=== PATIENT | female | born 1940 | race Caucasian/White ===

== ENCOUNTER 2017-07-05 19:46 | Emergency (ER) | payer MEDICARE, MEDICAID ==
[~2017-07-05] VITALS: Ht 160 cm; Wt 68.0 kg
[~2017-07-05 19:46] MED LIST: CARB1TAB23 PO; GABA-534 PO; [UNRECOGNIZED DRUG - CODE] PO
[2017-07-05] MEDS ORDERED: vancomycin/NS 1 GM ADD-VANTAGE 250 ML IV ONE (20:15)
[2017-07-05 20:40] LABS: BASOPHILS % (AUTO) 0.4 % (0-1); EOSINOPHILS # (AUTO) 0.1 X10'3 (0-0.9); EOSINOPHILS % (AUTO) 1.4 % (0-6); HEMATOCRIT 32.5 % (35.0-45.0); LYMPHOCYTES # (AUTO) 1.3 X10'3 (1.1-4.8); LYMPHOCYTES % (AUTO) 16.5 % (21-51); MEAN CORPUSCULAR HGB CONC 33.9 % (33.0-36.5); MEAN CORPUSCULAR VOLUME 88.5 FL (78-98); MEAN PLATELET VOLUME 8.7 FL (7.4-10.4); MONOCYTES # (AUTO) 0.6 X10'3 (0-0.9); MONOCYTES % (AUTO) 7.4 % (2-12); NEUTROPHILS % (AUTO) 74.3 % (42-75); PLATELET COUNT 284 X10'3 (140-440); RED BLOOD COUNT 3.68 X10'6 (4.20-5.60); WHITE BLOOD COUNT 8.1 X10'3 (4.5-11.0)
[2017-07-05 20:59] LABS: ALANINE AMINOTRANSFERASE 7 U/L (12-78); ALBUMIN 3.3 G/DL (3.4-5.0); ALBUMIN/GLOBULIN RATIO 0.7 (1.1-1.5); ALKALINE PHOSPHATASE 132 IU/L (46-116); ANION GAP 4 (8-16); ASPARTATE AMINO TRANSFERASE 21 U/L (10-37); BILIRUBIN,TOTAL 1.3 MG/DL (0.1-1.0); BLOOD UREA NITROGEN 24 MG/DL (7-18); BUN/CREATININE RATIO 17.1 (6.6-38.0); CALCIUM 9.1 MG/DL (8.5-10.1); CHLORIDE 105 MMOL/L (99-107); GLUCOSE 100 MG/DL (70-104); MAGNESIUM 1.9 MG/DL (1.5-2.4); POTASSIUM 3.9 MMOL/L (3.5-5.1); SODIUM 138 MMOL/L (135-145); TOTAL CARBON DIOXIDE 28.7 MMOL/L (24-32); TOTAL PROTEIN 8.1 G/DL (6.4-8.2); eGFR 36 ML/MIN
[2017-07-05] MEDS ORDERED: SULF1TAB49 PO (21:38)
[2017-07-05] MEDS ORDERED: CEPH250T PO (21:38)
[2017-07-05] MEDS ORDERED: cyclobenzaprine 10mg tablet PO ONE (21:50)
[2017-07-05 22:28] VITALS: BP 138/96
[2017-07-07] MEDS ORDERED: CLIN150C2 PO (23:39)
== END 2017-07-05 22:29 | disposition left against medical advice (07) ==
LOC: ER 19:47
DX: L03.116 Cellulitis of left lower limb (principal); L03.115 Cellulitis of right lower limb; I50.9 Heart failure, unspecified; N17.9 Acute kidney failure, unspecified
CPT/HCPCS: 36415; 80053; 83605; 83735; 84145; 85025; 87040; 96365; 99284; J3370

== ENCOUNTER 2017-09-03 19:32 | Inpatient (IN) | payer MEDICARE, MEDICAID ==
[~2017-09-03] VITALS: Ht 160 cm; Wt 81.3 kg
[2017-09-03 01:20] VITALS: BP 126/65
[~2017-09-03 19:32] MED LIST changes: +CEPH250T PO
[2017-09-03 20:23] LABS: BASOPHILS % (AUTO) 0.3 % (0-1); EOSINOPHILS % (AUTO) 0.4 % (0-6); HEMATOCRIT 34.7 % (35.0-45.0); HEMOGLOBIN 11.4 g/dl (12.0-16.0); LYMPHOCYTES # (AUTO) 0.9 X10'3 (1.1-4.8); LYMPHOCYTES % (AUTO) 10.8 % (21-51); MEAN CORPUSCULAR HEMOGLOBIN 30.1 PG (27.0-31.0); MEAN CORPUSCULAR HGB CONC 32.9 % (33.0-36.5); MEAN CORPUSCULAR VOLUME 91.6 FL (78-98); MEAN PLATELET VOLUME 8.2 FL (7.4-10.4); MONOCYTES # (AUTO) 0.5 X10'3 (0-0.9); MONOCYTES % (AUTO) 5.2 % (2-12); NEUTROPHILS # (AUTO) 7.2 X10'3 (1.8-7.7); NEUTROPHILS % (AUTO) 83.3 % (42-75); PLATELET COUNT 284 X10'3 (140-440); RED BLOOD COUNT 3.79 X10'6 (4.20-5.60); RED CELL DISTRIBUTION WIDTH 16.3 % (11.5-14.5); WHITE BLOOD COUNT 8.7 X10'3 (4.5-11.0)
[2017-09-03 20:37] LABS: ALANINE AMINOTRANSFERASE 9 U/L (12-78); ALBUMIN 2.9 G/DL (3.4-5.0); ALBUMIN/GLOBULIN RATIO 0.5 (1.1-1.5); ALKALINE PHOSPHATASE 181 IU/L (46-116); ANION GAP 13 (8-16); ASPARTATE AMINO TRANSFERASE 16 U/L (10-37); BILIRUBIN,TOTAL 0.8 MG/DL (0.1-1.0); BLOOD UREA NITROGEN 27 MG/DL (7-18); BUN/CREATININE RATIO 17.5 (6.6-38.0); CALCIUM 9.2 MG/DL (8.5-10.1); CHLORIDE 104 MMOL/L (99-107); CREATININE 1.54 MG/DL (0.40-0.90); GLUCOSE 84 MG/DL (70-104); POTASSIUM 4.6 MMOL/L (3.5-5.1); SODIUM 141 MMOL/L (135-145); TOTAL CARBON DIOXIDE 24.1 MMOL/L (24-32); TOTAL PROTEIN 8.2 G/DL (6.4-8.2); eGFR 33 ML/MIN
[2017-09-03 21:17] LABS: TROPONIN I < 0.04 NG/ML (0.0-0.05)
[2017-09-03] MEDS ORDERED: potassium Cl 40MEQ/NS 500ml 500 ML IV PRN ×2 (21:40)
[2017-09-03] MEDS ORDERED: acetaminophen 325mg tablet PO PRN (21:40)
[2017-09-03] MEDS ORDERED: potassium Cl 20 mEq SR tablet PO PRN ×2 (21:40)
[2017-09-03] MEDS ORDERED: ondansetron/PF 4mg/2ml inj IV PRN (21:40)
[2017-09-03 21:59] LABS: CLARITY,URINE CLOUDY (Clear); GLUCOSE, URINE NEGATIVE (Neg); KETONES,URINE TRACE mg/dl (Neg); LEUKOCYTE ESTERASE ,URINE MODERATE (Neg); NITRITES, URINE POSITIVE (Neg); OCCULT BLOOD,URINE LARGE (Neg); PROTEIN,URINE 100 mg/dl (Neg)
[2017-09-03 22:07] LABS: UA COLLECTION TYPE STRAIGHT CATH
[2017-09-03 22:08] LABS: COLOR,URINE AMBER (Yellow)
[2017-09-03 22:08] LABS: INR 1.1 INR; PARTIAL THROMBOPLASTIN TIME 26 SECONDS (22-32); PROTHROMBIN TIME 10.9 SECONDS (9.0-12.0)
[2017-09-03 22:10] LABS: BACTERIA,URINE 3+ /HPF (Neg); WBC,URINE 50-100 /HPF (0-4)
[2017-09-03 22:11] LABS: SQUAMOUS EPITHELIAL CELL,UR MANY /LPF (FEW)
[2017-09-03 22:12] LABS: MUCUS STRANDS FEW /LPF (Neg)
[2017-09-03 22:13] LABS: AMORPHOUS URATES 1+; HYALINE CASTS 0-3 /LPF (NEGATIVE)
[2017-09-03] MEDS: furosemide 40mg/4ml inj IV SCH (23:05)
[2017-09-04 01:20] VITALS: BP 126/65
[2017-09-04] MEDS ORDERED: piperacillin/tazo 3.375gm/50ml 50 ML IV ONE (02:40)
[2017-09-04] MEDS: gabapentin 400mg capsule PO SCH ×3 (02:44→17:07)
[2017-09-04] MEDS: piperacillin/tazo 3.375gm/50ml 50 ML IV SCH ×4 (02:45→22:34)
[2017-09-04 05:08] LABS: BASOPHILS % (AUTO) 0.4 % (0-1); EOSINOPHILS # (AUTO) 0.1 X10'3 (0-0.9); EOSINOPHILS % (AUTO) 1.2 % (0-6); HEMATOCRIT 30.2 % (35.0-45.0); HEMOGLOBIN 10.1 g/dl (12.0-16.0); LYMPHOCYTES # (AUTO) 0.8 X10'3 (1.1-4.8); LYMPHOCYTES % (AUTO) 7.5 % (21-51); MEAN CORPUSCULAR HEMOGLOBIN 30.1 PG (27.0-31.0); MEAN CORPUSCULAR HGB CONC 33.4 % (33.0-36.5); MEAN CORPUSCULAR VOLUME 90.2 FL (78-98); MEAN PLATELET VOLUME 8.6 FL (7.4-10.4); MONOCYTES # (AUTO) 0.6 X10'3 (0-0.9); MONOCYTES % (AUTO) 6.2 % (2-12); NEUTROPHILS # (AUTO) 8.7 X10'3 (1.8-7.7); NEUTROPHILS % (AUTO) 84.7 % (42-75); PLATELET COUNT 271 X10'3 (140-440); RED BLOOD COUNT 3.35 X10'6 (4.20-5.60); RED CELL DISTRIBUTION WIDTH 15.9 % (11.5-14.5); WHITE BLOOD COUNT 10.3 X10'3 (4.5-11.0)
[2017-09-04 05:30] LABS: ALBUMIN 2.4 G/DL (3.4-5.0); ANION GAP 10 (8-16); BLOOD UREA NITROGEN 28 MG/DL (7-18); BUN/CREATININE RATIO 18.9 (6.6-38.0); CALCIUM 8.5 MG/DL (8.5-10.1); CHLORIDE 105 MMOL/L (99-107); CREATININE 1.48 MG/DL (0.40-0.90); GLUCOSE 123 MG/DL (70-104); POTASSIUM 3.9 MMOL/L (3.5-5.1); SODIUM 140 MMOL/L (135-145); TOTAL CARBON DIOXIDE 24.8 MMOL/L (24-32); eGFR 34 ML/MIN
[2017-09-04 08:00] VITALS: BP 117/60
[2017-09-04] MEDS: K and/or MAG REPLACEMENT MC SCH (08:00)
[2017-09-04] MEDS: furosemide 40mg/4ml inj IV SCH (08:37)
[2017-09-04 11:00] VITALS: BP 116/62
[2017-09-04] MEDS: carbidoba-levodopa 25-100mg tablet PO SCH ×4 (11:23→22:34)
[2017-09-04] MEDS: HYDROcodone/acetaminophen 5mg/325mg tablet PO PRN ×2 (11:23→17:08)
[2017-09-04 14:54] VITALS: BP 89/53
[2017-09-04 15:59] VITALS: BP 102/44
[2017-09-04] MEDS: silver sulfadiazine cream 400gm jar TP SCH (17:15)
[2017-09-04 20:00] VITALS: BP 120/51
[2017-09-04] MEDS ORDERED: vancomycin/NS 1 GM ADD-VANTAGE 250 ML IV SCH (21:00)
[2017-09-04] MEDS: carbidopa/levodopa 50/200mg CR tablet PO SCH (21:00)
[2017-09-04] MEDS: heparin, porcine 5000 units/ml vial SQ SCH (22:35)
[2017-09-05] VITALS: BP 126/67
[2017-09-05] MEDS: gabapentin 400mg capsule PO SCH ×3 (00:09→16:50)
[2017-09-05] MEDS: vancomycin/NS 1 GM ADD-VANTAGE 250 ML IV SCH ×2 (00:10→22:55)
[2017-09-05] MEDS: piperacillin/tazo 3.375gm/50ml 50 ML IV SCH (03:56)
[2017-09-05 05:15] LABS: BASOPHILS % (AUTO) 0.3 % (0-1); EOSINOPHILS # (AUTO) 0.2 X10'3 (0-0.9); EOSINOPHILS % (AUTO) 2.2 % (0-6); HEMATOCRIT 31.3 % (35.0-45.0); HEMOGLOBIN 10.3 g/dl (12.0-16.0); LYMPHOCYTES # (AUTO) 1.7 X10'3 (1.1-4.8); LYMPHOCYTES % (AUTO) 15.4 % (21-51); MEAN CORPUSCULAR HEMOGLOBIN 30.3 PG (27.0-31.0); MEAN CORPUSCULAR VOLUME 91.8 FL (78-98); MEAN PLATELET VOLUME 8.9 FL (7.4-10.4); MONOCYTES # (AUTO) 0.9 X10'3 (0-0.9); MONOCYTES % (AUTO) 7.8 % (2-12); NEUTROPHILS # (AUTO) 8.3 X10'3 (1.8-7.7); NEUTROPHILS % (AUTO) 74.3 % (42-75); PLATELET COUNT 226 X10'3 (140-440); RED BLOOD COUNT 3.41 X10'6 (4.20-5.60); RED CELL DISTRIBUTION WIDTH 16.5 % (11.5-14.5); WHITE BLOOD COUNT 11.2 X10'3 (4.5-11.0)
[2017-09-05 05:50] LABS: ALBUMIN 1.9 G/DL (3.4-5.0); ANION GAP 7 (8-16); BLOOD UREA NITROGEN 34 MG/DL (7-18); BUN/CREATININE RATIO 18.1 (6.6-38.0); CALCIUM 8.1 MG/DL (8.5-10.1); CHLORIDE 105 MMOL/L (99-107); CREATININE 1.88 MG/DL (0.40-0.90); GLUCOSE 99 MG/DL (70-104); POTASSIUM 3.5 MMOL/L (3.5-5.1); SODIUM 142 MMOL/L (135-145); TOTAL CARBON DIOXIDE 30.5 MMOL/L (24-32); eGFR 26 ML/MIN
[2017-09-05 07:11] VITALS: BP 126/61
[2017-09-05] MEDS ORDERED: furosemide 40mg/4ml inj IV SCH (08:00)
[2017-09-05] MEDS: K and/or MAG REPLACEMENT MC SCH (08:00)
[2017-09-05] MEDS: heparin, porcine 5000 units/ml vial SQ SCH ×2 (09:01→19:53)
[2017-09-05] MEDS: carbidoba-levodopa 25-100mg tablet PO SCH ×4 (09:01→20:02)
[2017-09-05] MEDS: carbidopa/levodopa 50/200mg CR tablet PO SCH ×3 (09:01→20:03)
[2017-09-05] MEDS: levoFLOXACIN-Levaquin 500mg/D5 100 ML IV SCH (09:02)
[2017-09-05] MEDS: silver sulfadiazine cream 400gm jar TP SCH (09:03)
[2017-09-05 11:00] VITALS: BP 129/67
[2017-09-05] MEDS: carVEDilol 3.125mg tablet PO SCH (19:54)
[2017-09-05 20:00] VITALS: BP 101/67
[2017-09-06] VITALS: BP 105/59
[2017-09-06 05:27] LABS: BASOPHILS % (AUTO) 0 % (0-1); EOSINOPHILS # (AUTO) 0.5 X10'3 (0-0.9); HEMATOCRIT 32.1 % (35.0-45.0); HEMOGLOBIN 10.5 g/dl (12.0-16.0); LYMPHOCYTES # (AUTO) 1.7 X10'3 (1.1-4.8); MEAN CORPUSCULAR HEMOGLOBIN 30.1 PG (27.0-31.0); MEAN CORPUSCULAR HGB CONC 32.6 % (33.0-36.5); MEAN CORPUSCULAR VOLUME 92.3 FL (78-98); MEAN PLATELET VOLUME 9.1 FL (7.4-10.4); MONOCYTES # (AUTO) 1.1 X10'3 (0-0.9); MONOCYTES % (AUTO) 6.4 % (2-12); NEUTROPHILS # (AUTO) 14.1 X10'3 (1.8-7.7); NEUTROPHILS % (AUTO) 80.6 % (42-75); PLATELET COUNT 227 X10'3 (140-440); RED BLOOD COUNT 3.48 X10'6 (4.20-5.60); RED CELL DISTRIBUTION WIDTH 16.2 % (11.5-14.5); WHITE BLOOD COUNT 17.5 X10'3 (4.5-11.0)
[2017-09-06 05:39] LABS: ALBUMIN 1.9 G/DL (3.4-5.0); ANION GAP 5 (8-16); BLOOD UREA NITROGEN 42 MG/DL (7-18); CALCIUM 7.9 MG/DL (8.5-10.1); CHLORIDE 106 MMOL/L (99-107); GLUCOSE 91 MG/DL (70-104); POTASSIUM 3.7 MMOL/L (3.5-5.1); SODIUM 143 MMOL/L (135-145); TOTAL CARBON DIOXIDE 32.4 MMOL/L (24-32); eGFR 24 ML/MIN
[2017-09-06 07:30] VITALS: BP 113/54
[2017-09-06] MEDS: K and/or MAG REPLACEMENT MC SCH (07:43)
[2017-09-06] MEDS: carbidoba-levodopa 25-100mg tablet PO SCH ×4 (10:05→21:14)
[2017-09-06] MEDS: levoFLOXACIN-Levaquin 500mg/D5 100 ML IV SCH (10:05)
[2017-09-06] MEDS: heparin, porcine 5000 units/ml vial SQ SCH ×2 (10:05→20:06)
[2017-09-06] MEDS: carbidopa/levodopa 50/200mg CR tablet PO SCH ×3 (10:05→21:14)
[2017-09-06] MEDS: gabapentin 400mg capsule PO SCH ×4 (10:06→23:51)
[2017-09-06] MEDS: furosemide 20MG tablet PO SCH (10:06)
[2017-09-06] MEDS: carVEDilol 3.125mg tablet PO SCH ×2 (10:06→20:05)
[2017-09-06] MEDS: silver sulfadiazine cream 400gm jar TP SCH (10:07)
[2017-09-06 12:00] VITALS: BP 108/61
[2017-09-06] MEDS ORDERED: normal saline 500ml IV soln 1,000 ML IV ONE (14:00)
[2017-09-06 18:00] VITALS: BP 132/74
[2017-09-06] MEDS: lactobacillus rhamnosus 10,000 MMU CELLS/CAPSULE PO SCH (20:05)
[2017-09-06] MEDS: vancomycin/NS 1 GM ADD-VANTAGE 250 ML IV SCH (22:02)
[2017-09-06] MEDS ORDERED: VANCOMYCIN LEVEL IV ONE (22:30)
[2017-09-07] VITALS: BP 106/39
[2017-09-07 05:59] LABS: BASOPHILS % (AUTO) 0.1 % (0-1); EOSINOPHILS # (AUTO) 0.6 X10'3 (0-0.9); EOSINOPHILS % (AUTO) 3.1 % (0-6); HEMATOCRIT 28.4 % (35.0-45.0); HEMOGLOBIN 9.4 g/dl (12.0-16.0); LYMPHOCYTES # (AUTO) 1.8 X10'3 (1.1-4.8); LYMPHOCYTES % (AUTO) 9.8 % (21-51); MEAN CORPUSCULAR HEMOGLOBIN 30.2 PG (27.0-31.0); MEAN CORPUSCULAR VOLUME 91.6 FL (78-98); MEAN PLATELET VOLUME 9.5 FL (7.4-10.4); MONOCYTES # (AUTO) 1.3 X10'3 (0-0.9); PLATELET COUNT 220 X10'3 (140-440); RED CELL DISTRIBUTION WIDTH 16.5 % (11.5-14.5); WHITE BLOOD COUNT 18.7 X10'3 (4.5-11.0)
[2017-09-07 06:23] LABS: ALBUMIN 1.6 G/DL (3.4-5.0); ANION GAP 8 (8-16); BLOOD UREA NITROGEN 47 MG/DL (7-18); BUN/CREATININE RATIO 21.2 (6.6-38.0); CHLORIDE 106 MMOL/L (99-107); CREATININE 2.22 MG/DL (0.40-0.90); GLUCOSE 84 MG/DL (70-104); POTASSIUM 4.2 MMOL/L (3.5-5.1); SODIUM 143 MMOL/L (135-145); TOTAL CARBON DIOXIDE 29.5 MMOL/L (24-32); eGFR 21 ML/MIN
[2017-09-07 07:01] VITALS: BP 118/54
[2017-09-07] MEDS: K and/or MAG REPLACEMENT MC SCH (08:00)
[2017-09-07] MEDS: levoFLOXACIN-Levaquin 500mg/D5 100 ML IV SCH (09:30)
[2017-09-07] MEDS: carbidopa/levodopa 50/200mg CR tablet PO SCH ×3 (09:30→20:24)
[2017-09-07] MEDS: carVEDilol 3.125mg tablet PO SCH ×2 (09:30→20:00)
[2017-09-07] MEDS: gabapentin 400mg capsule PO SCH (09:31)
[2017-09-07] MEDS: carbidoba-levodopa 25-100mg tablet PO SCH ×4 (09:31→20:23)
[2017-09-07] MEDS: lactobacillus rhamnosus 10,000 MMU CELLS/CAPSULE PO SCH ×2 (09:31→20:23)
[2017-09-07] MEDS: furosemide 20MG tablet PO SCH (09:31)
[2017-09-07] MEDS: heparin, porcine 5000 units/ml vial SQ SCH ×2 (09:32→20:23)
[2017-09-07] MEDS: silver sulfadiazine cream 400gm jar TP SCH (09:33)
[2017-09-07 11:00] VITALS: BP 115/40
[2017-09-07] MEDS ORDERED: gabapentin 300mg capsule PO SCH (12:00)
[2017-09-07 18:00] VITALS: BP 96/50
[2017-09-07] MEDS ORDERED: VANCOMYCIN LEVEL IV ONE (22:30)
[2017-09-07] MEDS: vancomycin/NS 1 GM ADD-VANTAGE 250 ML IV SCH (22:50)
[2017-09-08] VITALS (7 sets, daily range): BP systolic 96–107; BP diastolic 35–52
[2017-09-08 04:59] LABS: BASOPHILS % (AUTO) 0.1 % (0-1); EOSINOPHILS # (AUTO) 0.5 X10'3 (0-0.9); EOSINOPHILS % (AUTO) 2.9 % (0-6); HEMATOCRIT 28.2 % (35.0-45.0); HEMOGLOBIN 9.3 g/dl (12.0-16.0); LYMPHOCYTES # (AUTO) 1.7 X10'3 (1.1-4.8); LYMPHOCYTES % (AUTO) 9.9 % (21-51); MEAN CORPUSCULAR HEMOGLOBIN 30.1 PG (27.0-31.0); MEAN CORPUSCULAR HGB CONC 33.1 % (33.0-36.5); MEAN PLATELET VOLUME 9.5 FL (7.4-10.4); MONOCYTES # (AUTO) 1.1 X10'3 (0-0.9); MONOCYTES % (AUTO) 6.5 % (2-12); NEUTROPHILS # (AUTO) 13.6 X10'3 (1.8-7.7); NEUTROPHILS % (AUTO) 80.6 % (42-75); PLATELET COUNT 250 X10'3 (140-440); WHITE BLOOD COUNT 16.9 X10'3 (4.5-11.0)
[2017-09-08 05:28] LABS: ALBUMIN 1.7 G/DL (3.4-5.0); ANION GAP 7 (8-16); BLOOD UREA NITROGEN 58 MG/DL (7-18); BUN/CREATININE RATIO 20.9 (6.6-38.0); CALCIUM 8.3 MG/DL (8.5-10.1); CHLORIDE 105 MMOL/L (99-107); CREATININE 2.78 MG/DL (0.40-0.90); GLUCOSE 91 MG/DL (70-104); POTASSIUM 4.2 MMOL/L (3.5-5.1); SODIUM 142 MMOL/L (135-145); TOTAL CARBON DIOXIDE 30.1 MMOL/L (24-32); eGFR 16 ML/MIN
[2017-09-08] MEDS: K and/or MAG REPLACEMENT MC SCH (08:00)
[2017-09-08] MEDS: levoFLOXACIN-Levaquin 250mg/D5 100 ML IV SCH (08:13)
[2017-09-08] MEDS: carVEDilol 3.125mg tablet PO SCH ×2 (08:14→19:36)
[2017-09-08] MEDS: gabapentin 300mg capsule PO SCH (08:14)
[2017-09-08] MEDS: carbidoba-levodopa 25-100mg tablet PO SCH ×4 (08:14→22:59)
[2017-09-08] MEDS: lactobacillus rhamnosus 10,000 MMU CELLS/CAPSULE PO SCH ×2 (08:14→19:25)
[2017-09-08] MEDS: carbidopa/levodopa 50/200mg CR tablet PO SCH ×3 (08:14→22:59)
[2017-09-08] MEDS: heparin, porcine 5000 units/ml vial SQ SCH ×2 (08:45→19:29)
[2017-09-08] MEDS ORDERED: albumin (human) 25% 100 ML IV solution IV ONE (16:05)
[2017-09-08 17:35] LABS: CLARITY,URINE TURBID (Clear); COLOR,URINE YELLOW (Yellow); GLUCOSE, URINE NEGATIVE (Neg); KETONES,URINE NEGATIVE (Neg); LEUKOCYTE ESTERASE ,URINE LARGE (Neg); NITRITES, URINE NEGATIVE (Neg); OCCULT BLOOD,URINE LARGE (Neg); PH,URINE 5.5 (4.8-8.0); PROTEIN,URINE 100 mg/dl (Neg); UROBILINOGEN,URINE 0.2 E.U/dL (0.2-1.0)
[2017-09-08 17:38] LABS: UA COLLECTION TYPE NON-SPECIFIED
[2017-09-08 17:42] LABS: BACTERIA,URINE 2+ /HPF (Neg); MUCUS STRANDS NONE SEEN /LPF (Neg); RBC,URINE TNTC /HPF (0-2); SQUAMOUS EPITHELIAL CELL,UR FEW /LPF (FEW); WBC CLUMPS,URINE MANY /HPF (NEGATIVE); WBC,URINE TNTC /HPF (0-4); YEAST MANY /HPF (NEGATIVE)
[2017-09-08 18:04] LABS: TROPONIN I < 0.04 NG/ML (0.0-0.05)
[2017-09-08] MEDS: CefTRIAXone 2gm/D5W 50ml 50 ML IV SCH (22:54)
[2017-09-08] MEDS: silver sulfadiazine cream 400gm jar TP SCH (23:00)
[2017-09-09] VITALS (12 sets, daily range): BP systolic 82–118; BP diastolic 35–57
[2017-09-09] MEDS: VANCOMYCIN LEVEL IV SCH ×2 (03:00→10:28)
[2017-09-09] MEDS ORDERED: vancomycin/NS 1 GM ADD-VANTAGE 250 ML IV PRN (07:00)
[2017-09-09] MEDS: K and/or MAG REPLACEMENT MC SCH (08:00)
[2017-09-09] MEDS ORDERED: albumin (human) 25% 100 ML IV solution IV ONE (08:20)
[2017-09-09] MEDS: levoFLOXACIN-Levaquin 250mg/D5 100 ML IV SCH (08:34)
[2017-09-09] MEDS: heparin, porcine 5000 units/ml vial SQ SCH ×2 (08:35→20:37)
[2017-09-09] MEDS: carbidoba-levodopa 25-100mg tablet PO SCH ×4 (08:35→20:37)
[2017-09-09] MEDS: carbidopa/levodopa 50/200mg CR tablet PO SCH ×4 (08:35→20:37)
[2017-09-09] MEDS: gabapentin 300mg capsule PO SCH (08:35)
[2017-09-09] MEDS: lactobacillus rhamnosus 10,000 MMU CELLS/CAPSULE PO SCH ×2 (08:36→20:38)
[2017-09-09] MEDS: HYDROcodone/acetaminophen 5mg/325mg tablet PO PRN (10:10)
[2017-09-09] MEDS ORDERED: LORazepam 2 mg/ml vial IV ONE (10:30)
[2017-09-09 10:56] LABS: ABG BASE EXCESS -1.4 mmol/L (-2.0-3.0); ABG HCO3 24.5 mmol/L (22.0-26.0); ABG OXYGEN SATURATION 94.8 % (95-98); ABG PCO2 (T) 47.3 mmHg (32.0-45.0); ABG PH (T) 7.333 (7.350-7.450); ABG PO2 (T) 77.2 mmHg (83-108); ALLEN'S TEST Positive; FCOHb 0.3 % (0.5-1.5); FLOW 2 L/min; FMetHb 0.3 % (0.3-1.12); FO2Hb 94.2 % (94-100); TOTAL HEMOGLOBIN 8.9 G/dl (12.0-16.0)
[2017-09-09] MEDS ORDERED: normal saline 1000ml 1,000 ML IVB ONE (12:41)
[2017-09-09] MEDS: normal saline 1000ml 1,000 ML IV SCH ×2 (12:45→17:50)
[2017-09-09 13:02] LABS: VANCOMYCIN,RANDOM 15.5 UG/ML
[2017-09-09 14:20] LABS: BASOPHILS % (AUTO) 0.2 % (0-1); EOSINOPHILS # (AUTO) 0.4 X10'3 (0-0.9); EOSINOPHILS % (AUTO) 4.8 % (0-6); HEMATOCRIT 24.8 % (35.0-45.0); HEMOGLOBIN 8.1 g/dl (12.0-16.0); LYMPHOCYTES # (AUTO) 0.9 X10'3 (1.1-4.8); LYMPHOCYTES % (AUTO) 10.1 % (21-51); MEAN CORPUSCULAR HEMOGLOBIN 29.9 PG (27.0-31.0); MEAN CORPUSCULAR HGB CONC 32.6 % (33.0-36.5); MEAN CORPUSCULAR VOLUME 91.7 FL (78-98); MEAN PLATELET VOLUME 9.8 FL (7.4-10.4); MONOCYTES # (AUTO) 0.5 X10'3 (0-0.9); MONOCYTES % (AUTO) 5.1 % (2-12); NEUTROPHILS # (AUTO) 7.2 X10'3 (1.8-7.7); NEUTROPHILS % (AUTO) 79.8 % (42-75); PLATELET COUNT 245 X10'3 (140-440); RED CELL DISTRIBUTION WIDTH 16.2 % (11.5-14.5)
[2017-09-09 14:32] LABS: PROTHROMBIN TIME 10.6 SECONDS (9.0-12.0)
[2017-09-09 14:40] LABS: ALANINE AMINOTRANSFERASE 10 U/L (12-78); ALBUMIN/GLOBULIN RATIO 0.8 (1.1-1.5); ALKALINE PHOSPHATASE 157 IU/L (46-116); ANION GAP 9 (8-16); ASPARTATE AMINO TRANSFERASE 18 U/L (10-37); BILIRUBIN,TOTAL 0.4 MG/DL (0.1-1.0); BLOOD UREA NITROGEN 55 MG/DL (7-18); CALCIUM 8.6 MG/DL (8.5-10.1); CHLORIDE 106 MMOL/L (99-107); CREATININE 2.29 MG/DL (0.40-0.90); GLUCOSE 108 MG/DL (70-104); PHOSPHORUS 3.7 MG/DL (2.3-4.5); POTASSIUM 4.1 MMOL/L (3.5-5.1); SODIUM 143 MMOL/L (135-145); TOTAL PROTEIN 6.7 G/DL (6.4-8.2); eGFR 21 ML/MIN
[2017-09-09 14:40] LABS: TOTAL PROTEIN,URINE RANDOM 153.1 MG/DL
[2017-09-09] MEDS ORDERED: levoFLOXACIN-Levaquin 250mg/D5 50 ML IV SCH (15:00)
[2017-09-09] MEDS: silver sulfadiazine cream 400gm jar TP SCH (16:11)
[2017-09-09] MEDS: methylPREDNISolone sod succ 125mg/2ml vial IV SCH (20:32)
[2017-09-09] MEDS: CefTRIAXone 2gm/D5W 50ml 50 ML IV SCH (20:32)
[2017-09-10 05:46] LABS: BASOPHILS % (AUTO) 0.1 % (0-1); EOSINOPHILS % (AUTO) 0.1 % (0-6); HEMATOCRIT 27.8 % (35.0-45.0); HEMOGLOBIN 9.1 g/dl (12.0-16.0); LYMPHOCYTES # (AUTO) 0.8 X10'3 (1.1-4.8); LYMPHOCYTES % (AUTO) 9.8 % (21-51); MEAN CORPUSCULAR HEMOGLOBIN 29.9 PG (27.0-31.0); MEAN CORPUSCULAR HGB CONC 32.5 % (33.0-36.5); MEAN CORPUSCULAR VOLUME 91.8 FL (78-98); MEAN PLATELET VOLUME 9.8 FL (7.4-10.4); MONOCYTES % (AUTO) 0.5 % (2-12); NEUTROPHILS # (AUTO) 7.9 X10'3 (1.8-7.7); NEUTROPHILS % (AUTO) 89.5 % (42-75); PLATELET COUNT 285 X10'3 (140-440); RED BLOOD COUNT 3.03 X10'6 (4.20-5.60); RED CELL DISTRIBUTION WIDTH 15.5 % (11.5-14.5); WHITE BLOOD COUNT 8.7 X10'3 (4.5-11.0)
[2017-09-10 05:47] LABS: ALANINE AMINOTRANSFERASE 7 U/L (12-78); ALBUMIN 2.9 G/DL (3.4-5.0); ALBUMIN/GLOBULIN RATIO 0.7 (1.1-1.5); ANION GAP 9 (8-16); ASPARTATE AMINO TRANSFERASE 18 U/L (10-37); BILIRUBIN,TOTAL 0.5 MG/DL (0.1-1.0); BLOOD UREA NITROGEN 54 MG/DL (7-18); BUN/CREATININE RATIO 25.6 (6.6-38.0); CALCIUM 8.8 MG/DL (8.5-10.1); CHLORIDE 108 MMOL/L (99-107); CREATININE 2.11 MG/DL (0.40-0.90); GLUCOSE 151 MG/DL (70-104); MAGNESIUM 2.1 MG/DL (1.5-2.4); PHOSPHORUS 4.5 MG/DL (2.3-4.5); POTASSIUM 4.8 MMOL/L (3.5-5.1); SODIUM 144 MMOL/L (135-145); TOTAL CARBON DIOXIDE 27.5 MMOL/L (24-32); TOTAL PROTEIN 7.1 G/DL (6.4-8.2); eGFR 23 ML/MIN
[2017-09-10 05:48] LABS: ALKALINE PHOSPHATASE 179 IU/L (46-116)
[2017-09-10 07:37] VITALS: BP 139/73
[2017-09-10] MEDS: K and/or MAG REPLACEMENT MC SCH (08:00)
[2017-09-10] MEDS: silver sulfadiazine cream 400gm jar TP SCH (08:00)
[2017-09-10 08:15] LABS: PROTHROMBIN TIME 10.2 SECONDS (9.0-12.0)
[2017-09-10] MEDS: lactobacillus rhamnosus 10,000 MMU CELLS/CAPSULE PO SCH ×2 (08:33→19:50)
[2017-09-10] MEDS: levoFLOXACIN-Levaquin 250mg/D5 100 ML IV SCH (08:34)
[2017-09-10] MEDS: methylPREDNISolone sod succ 125mg/2ml vial IV SCH ×3 (08:34→20:47)
[2017-09-10] MEDS: carbidoba-levodopa 25-100mg tablet PO SCH ×4 (08:35→20:48)
[2017-09-10] MEDS: gabapentin 300mg capsule PO SCH (08:35)
[2017-09-10] MEDS: carbidopa/levodopa 50/200mg CR tablet PO SCH ×3 (08:36→20:48)
[2017-09-10] MEDS: heparin, porcine 5000 units/ml vial SQ SCH ×2 (08:37→19:50)
[2017-09-10 11:30] VITALS: BP 133/83
[2017-09-10] MEDS ORDERED: fluconazole 150mg tablet PO ONE (18:05)
[2017-09-10] MEDS: HYDROcodone/acetaminophen 5mg/325mg tablet PO PRN (18:55)
[2017-09-10] MEDS: fluconazole 100mg tablet PO SCH (19:47)
[2017-09-10 20:00] VITALS: BP 130/66
[2017-09-10] MEDS: CefTRIAXone 2gm/D5W 50ml 50 ML IV SCH (20:48)
[2017-09-10] MEDS: normal saline 1000ml 1,000 ML IV SCH (22:12)
[2017-09-10 23:30] VITALS: BP 119/70
[2017-09-11 06:06] LABS: BASOPHILS % (AUTO) 0.2 % (0-1); EOSINOPHILS % (AUTO) 0 % (0-6); HEMATOCRIT 27.4 % (35.0-45.0); LYMPHOCYTES # (AUTO) 0.8 X10'3 (1.1-4.8); LYMPHOCYTES % (AUTO) 13.9 % (21-51); MEAN CORPUSCULAR HEMOGLOBIN 29.9 PG (27.0-31.0); MEAN CORPUSCULAR VOLUME 90.8 FL (78-98); MEAN PLATELET VOLUME 10.1 FL (7.4-10.4); MONOCYTES # (AUTO) 0.1 X10'3 (0-0.9); MONOCYTES % (AUTO) 1.7 % (2-12); NEUTROPHILS # (AUTO) 4.6 X10'3 (1.8-7.7); NEUTROPHILS % (AUTO) 84.2 % (42-75); PLATELET COUNT 283 X10'3 (140-440); RED BLOOD COUNT 3.02 X10'6 (4.20-5.60); RED CELL DISTRIBUTION WIDTH 16.4 % (11.5-14.5); WHITE BLOOD COUNT 5.5 X10'3 (4.5-11.0)
[2017-09-11 06:11] LABS: PROTHROMBIN TIME 10.8 SECONDS (9.0-12.0)
[2017-09-11 06:29] LABS: ALANINE AMINOTRANSFERASE 8 U/L (12-78); ALBUMIN 2.7 G/DL (3.4-5.0); ALBUMIN/GLOBULIN RATIO 0.6 (1.1-1.5); ALKALINE PHOSPHATASE 164 IU/L (46-116); ANION GAP 10 (8-16); ASPARTATE AMINO TRANSFERASE 14 U/L (10-37); BILIRUBIN,TOTAL 0.5 MG/DL (0.1-1.0); BLOOD UREA NITROGEN 57 MG/DL (7-18); BUN/CREATININE RATIO 30.6 (6.6-38.0); CALCIUM 9.1 MG/DL (8.5-10.1); CHLORIDE 106 MMOL/L (99-107); CREATININE 1.86 MG/DL (0.40-0.90); GLUCOSE 171 MG/DL (70-104); MAGNESIUM 2.2 MG/DL (1.5-2.4); PHOSPHORUS 3.9 MG/DL (2.3-4.5); POTASSIUM 4.4 MMOL/L (3.5-5.1); SODIUM 141 MMOL/L (135-145); TOTAL CARBON DIOXIDE 25.5 MMOL/L (24-32); TOTAL PROTEIN 6.9 G/DL (6.4-8.2); eGFR 26 ML/MIN
[2017-09-11 08:00] VITALS: BP 120/67
[2017-09-11] MEDS: K and/or MAG REPLACEMENT MC SCH (08:00)
[2017-09-11] MEDS: carbidopa/levodopa 50/200mg CR tablet PO SCH ×3 (08:17→20:27)
[2017-09-11] MEDS: carbidoba-levodopa 25-100mg tablet PO SCH ×4 (08:18→20:27)
[2017-09-11] MEDS: lactobacillus rhamnosus 10,000 MMU CELLS/CAPSULE PO SCH ×2 (08:20→20:27)
[2017-09-11] MEDS: gabapentin 300mg capsule PO SCH (08:20)
[2017-09-11] MEDS: fluconazole 100mg tablet PO SCH (08:21)
[2017-09-11] MEDS: methylPREDNISolone sod succ 125mg/2ml vial IV SCH ×3 (08:21→20:27)
[2017-09-11] MEDS: heparin, porcine 5000 units/ml vial SQ SCH ×2 (08:22→20:26)
[2017-09-11] MEDS: silver sulfadiazine cream 400gm jar TP SCH (08:24)
[2017-09-11 12:36] VITALS: BP 132/63
[2017-09-11] MEDS: levoFLOXACIN 250mg tablet PO SCH (12:45)
[2017-09-11] MEDS: HYDROcodone/acetaminophen 5mg/325mg tablet PO PRN (14:17)
[2017-09-11 20:00] VITALS: BP 103/73
[2017-09-11] MEDS: CefTRIAXone 2gm/D5W 50ml 50 ML IV SCH (20:27)
[2017-09-12] VITALS: BP 121/58
[2017-09-12] MEDS: normal saline 1000ml 1,000 ML IV SCH (03:38)
[2017-09-12 05:30] LABS: INR 1.1 INR; PROTHROMBIN TIME 11.4 SECONDS (9.0-12.0)
[2017-09-12 05:51] LABS: ANION GAP 8 (8-16); BLOOD UREA NITROGEN 65 MG/DL (7-18); BUN/CREATININE RATIO 34.9 (6.6-38.0); CALCIUM 9.2 MG/DL (8.5-10.1); CHLORIDE 107 MMOL/L (99-107); CREATININE 1.86 MG/DL (0.40-0.90); GLUCOSE 155 MG/DL (70-104); MAGNESIUM 2.1 MG/DL (1.5-2.4); POTASSIUM 4.9 MMOL/L (3.5-5.1); SODIUM 142 MMOL/L (135-145); TOTAL CARBON DIOXIDE 27.3 MMOL/L (24-32); eGFR 26 ML/MIN
[2017-09-12 05:52] LABS: ALANINE AMINOTRANSFERASE 8 U/L (12-78); ALBUMIN 2.7 G/DL (3.4-5.0); ALBUMIN/GLOBULIN RATIO 0.6 (1.1-1.5); ALKALINE PHOSPHATASE 169 IU/L (46-116); ASPARTATE AMINO TRANSFERASE 16 U/L (10-37); BILIRUBIN,TOTAL 0.6 MG/DL (0.1-1.0)
[2017-09-12 06:25] LABS: BASOPHILS % (AUTO) 0 % (0-1); EOSINOPHILS % (AUTO) 0.1 % (0-6); HEMATOCRIT 29.1 % (35.0-45.0); HEMOGLOBIN 9.7 g/dl (12.0-16.0); LYMPHOCYTES # (AUTO) 0.7 X10'3 (1.1-4.8); LYMPHOCYTES % (AUTO) 11.4 % (21-51); MEAN CORPUSCULAR HEMOGLOBIN 30.4 PG (27.0-31.0); MEAN CORPUSCULAR HGB CONC 33.4 % (33.0-36.5); MEAN CORPUSCULAR VOLUME 90.9 FL (78-98); MEAN PLATELET VOLUME 9.9 FL (7.4-10.4); MONOCYTES # (AUTO) 0.1 X10'3 (0-0.9); MONOCYTES % (AUTO) 2.3 % (2-12); NEUTROPHILS % (AUTO) 86.2 % (42-75); PLATELET COUNT 295 X10'3 (140-440); RED CELL DISTRIBUTION WIDTH 15.2 % (11.5-14.5); WHITE BLOOD COUNT 5.8 X10'3 (4.5-11.0)
[2017-09-12] MEDS: carbidopa/levodopa 50/200mg CR tablet PO SCH ×2 (07:16→13:36)
[2017-09-12] MEDS: gabapentin 300mg capsule PO SCH (07:16)
[2017-09-12] MEDS: lactobacillus rhamnosus 10,000 MMU CELLS/CAPSULE PO SCH (07:16)
[2017-09-12] MEDS: fluconazole 100mg tablet PO SCH (07:17)
[2017-09-12] MEDS: carbidoba-levodopa 25-100mg tablet PO SCH ×2 (07:17→13:36)
[2017-09-12] MEDS: silver sulfadiazine cream 400gm jar TP SCH (07:18)
[2017-09-12] MEDS: heparin, porcine 5000 units/ml vial SQ SCH (07:18)
[2017-09-12] MEDS: methylPREDNISolone sod succ 125mg/2ml vial IV SCH ×2 (07:18→13:37)
[2017-09-12] MEDS: K and/or MAG REPLACEMENT MC SCH (07:27)
[2017-09-12 07:33] VITALS: BP 146/79
[2017-09-12] MEDS: levoFLOXACIN 250mg tablet PO SCH (11:19)
[2017-09-12 14:39] VITALS: BP 141/76
== END 2017-09-12 16:05 | DRG 871 ==
LOC: ER 19:33 → ED HOLD 21:36 → SUR 3N 09-04 01:16
PROVIDERS: ADMIT Family Medicine; ATTEND Family Medicine
PROC: CT131ZZ Planar Nuclear Medicine Imaging of Kidneys, Ureters and Bladder using Technetium 99m (Tc-99m) (ICD-10-PCS; principal; 2017-09-10)
DX: A41.9 Sepsis, unspecified organism (principal); J18.9 Pneumonia, unspecified organism; I50.23 Acute on chronic systolic (congestive) heart failure; E44.0 Moderate protein-calorie malnutrition; I48.91 Unspecified atrial fibrillation; G20 Parkinson's disease; I95.9 Hypotension, unspecified; N18.4 Chronic kidney disease, stage 4 (severe); J44.0 Chronic obstructive pulmonary disease with (acute) lower respiratory infection; L03.116 Cellulitis of left lower limb; J44.1 Chronic obstructive pulmonary disease with (acute) exacerbation; N39.0 Urinary tract infection, site not specified; L03.115 Cellulitis of right lower limb; G89.29 Other chronic pain; B96.89 Other specified bacterial agents as the cause of diseases classified elsewhere; M54.9 Dorsalgia, unspecified; Z60.2 Problems related to living alone; Z90.5 Acquired absence of kidney; Z90.49 Acquired absence of other specified parts of digestive tract; Z98.51 Tubal ligation status; Z79.899 Other long term (current) drug therapy; Z87.442 Personal history of urinary calculi; Z82.3 Family history of stroke; Z68.31 Body mass index [BMI] 31.0-31.9, adult
CPT/HCPCS: 36415; 36600; 71045; 71250; 74018; 76775; 78707; 80048; 80053; 80202; 81001; 82570; 82803; 83605; 83735; 83880; 84100; 84145; 84156; 84300; 84484; 85018; 85025; 85610; 85730; 87040; 87070; 87077; 87088; 87186; 93005; 93306; 97110; 97116; 97161; 97530; 99285; A4315; A4353; A4649; A6196; A6212; A6213; A6223; A6255; A6446; A6449; A9562; J0696; J1644; J1940; J1956; J2060; J2543; J2930; J3370; J7030; P9047

== ENCOUNTER 2018-02-19 09:26 | Inpatient (IN) | payer MEDICARE, MEDICAID ==
[~2018-02-19] VITALS: Ht 157.5 cm; Wt 61.0 kg
[2018-02-19] MEDS ORDERED: normal saline 1000ML IV soln IVB ONE (10:10)
[2018-02-19] MEDS ORDERED: ondansetron/PF 4mg/2ml inj IV ONE (10:10)
[2018-02-19 10:40] LABS: BASOPHILS % (AUTO) 0 % (0-1); EOSINOPHILS # (AUTO) 0.1 X10'3 (0-0.9); EOSINOPHILS % (AUTO) 0.8 % (0-6); HEMOGLOBIN 10.8 g/dl (12.0-16.0); LYMPHOCYTES # (AUTO) 0.9 X10'3 (1.1-4.8); LYMPHOCYTES % (AUTO) 11.6 % (21-51); MEAN CORPUSCULAR HEMOGLOBIN 29.5 PG (27.0-31.0); MEAN CORPUSCULAR HGB CONC 33.7 % (33.0-36.5); MEAN CORPUSCULAR VOLUME 87.3 FL (78-98); MEAN PLATELET VOLUME 8.5 FL (7.4-10.4); MONOCYTES # (AUTO) 0.2 X10'3 (0-0.9); MONOCYTES % (AUTO) 2.9 % (2-12); NEUTROPHILS # (AUTO) 6.5 X10'3 (1.8-7.7); NEUTROPHILS % (AUTO) 84.7 % (42-75); PLATELET COUNT 332 X10'3 (140-440); RED BLOOD COUNT 3.66 X10'6 (4.20-5.60); RED CELL DISTRIBUTION WIDTH 14.9 % (11.5-14.5); WHITE BLOOD COUNT 7.7 X10'3 (4.5-11.0)
[2018-02-19 10:51] LABS: CLARITY,URINE CLOUDY (Clear); COLOR,URINE YELLOW (Yellow); GLUCOSE, URINE NEGATIVE (Neg); KETONES,URINE TRACE mg/dl (Neg); LEUKOCYTE ESTERASE ,URINE MODERATE (Neg); NITRITES, URINE POSITIVE (Neg); OCCULT BLOOD,URINE MODERATE (Neg); PH,URINE 8.5 (4.8-8.0); PROTEIN,URINE 100 mg/dl (Neg); UROBILINOGEN,URINE 0.2 E.U/dL (0.2-1.0)
[2018-02-19 10:53] LABS: PARTIAL THROMBOPLASTIN TIME 26 SECONDS (22-32); PROTHROMBIN TIME 10.8 SECONDS (9.0-12.0)
[2018-02-19 10:54] LABS: UA COLLECTION TYPE STRAIGHT CATH
[2018-02-19 10:57] LABS: WBC,URINE TNTC /HPF (0-4)
[2018-02-19 10:58] LABS: ALBUMIN 2.5 G/DL (3.4-5.0); ALBUMIN/GLOBULIN RATIO 0.5 (1.1-1.5); ALKALINE PHOSPHATASE 126 IU/L (46-116); ANION GAP 12 (8-16); ASPARTATE AMINO TRANSFERASE 11 U/L (10-37); BILIRUBIN,TOTAL 0.7 MG/DL (0.1-1.0); BLOOD UREA NITROGEN 41 MG/DL (7-18); BUN/CREATININE RATIO 27.3 (6.6-38.0); CALCIUM 8.8 MG/DL (8.5-10.1); CHLORIDE 100 MMOL/L (99-107); GLUCOSE 77 MG/DL (70-104); LIPASE < 50 U/L (73-393); SODIUM 139 MMOL/L (135-145); TOTAL CARBON DIOXIDE 27.3 MMOL/L (24-32); TOTAL PROTEIN 7.3 G/DL (6.4-8.2); eGFR 33 ML/MIN
[2018-02-19 10:58] LABS: BACTERIA,URINE 4+ /HPF (Neg); RBC,URINE 20-50 /HPF (0-2); SQUAMOUS EPITHELIAL CELL,UR FEW /LPF (FEW)
[2018-02-19 11:01] LABS: TRIPLE PHOSPHATE CRYST 1+ /HPF (NEGATIVE)
[2018-02-19 11:02] LABS: ALANINE AMINOTRANSFERASE < 6 U/L (12-78)
[2018-02-19] MEDS ORDERED: potassium Cl 10 mEq/100mL bag IV ONE (11:25)
[2018-02-19] MEDS ORDERED: potassium 10mEq/100ml NS w/LIDOcaine (10mg/bag) IV ONE (11:30)
[2018-02-19] MEDS ORDERED: dextrose 5%-1/2 normal saline 1,000 ML IV SCH (15:22)
[2018-02-19] MEDS ORDERED: mag hydrox/Alum hydrox/simeth 30ml oral suspension PO PRN (15:25)
[2018-02-19] MEDS ORDERED: acetaminophen 325mg tablet PO PRN (15:25)
[2018-02-19] MEDS ORDERED: morphine 2 MG/ML inj. syringe IV PRN ×2 (15:25)
[2018-02-19 17:45] VITALS: BP 112/53
[2018-02-19] MEDS: vancomycin 125mg/5ml ORAL solution 5ml UD bottle PO SCH (20:24)
[2018-02-19] MEDS: carbidopa/levodopa 50/200mg CR tablet PO SCH (20:24)
[2018-02-19] MEDS: carbidoba-levodopa 25-100mg tablet PO SCH (20:24)
[2018-02-19 22:00] VITALS: BP_SYST 129; BP_SYST 95; BP_DIAS 47; BP_DIAS 54
[2018-02-20] MEDS ORDERED: potassium Cl 40MEQ/NS 500ml 500 ML IV PRN ×2 (00:25)
[2018-02-20] MEDS ORDERED: potassium Cl 20 mEq SR tablet PO PRN ×2 (00:25)
[2018-02-20] MEDS ORDERED: potassium Cl 10 mEq/100mL bag IV ONE ×2 (00:25→01:55)
[2018-02-20] MEDS ORDERED: potassium Cl 20 mEq SR tablet PO STA (00:25)
[2018-02-20] MEDS: potassium CL 20mEq in D5-1/2NS 1,000 ML IV SCH ×3 (01:04→20:25)
[2018-02-20] MEDS: vancomycin 125mg/5ml ORAL solution 5ml UD bottle PO SCH ×4 (02:10→20:25)
[2018-02-20] MEDS: HYDROcodone/acetaminophen 5mg/325mg tablet PO PRN (05:12)
[2018-02-20 06:00] VITALS: BP 132/80
[2018-02-20] MEDS: carbidoba-levodopa 25-100mg tablet PO SCH ×4 (07:19→20:26)
[2018-02-20] MEDS: carbidopa/levodopa 50/200mg CR tablet PO SCH ×3 (07:20→20:26)
[2018-02-20] MEDS ORDERED: enoxaparin 40mg/0.4ml syringe SUBCUT SCH (08:00)
[2018-02-20 08:07] LABS: BASOPHILS % (AUTO) 0.2 % (0-1); EOSINOPHILS # (AUTO) 0.1 X10'3 (0-0.9); EOSINOPHILS % (AUTO) 1.4 % (0-6); HEMATOCRIT 28.3 % (35.0-45.0); HEMOGLOBIN 9.4 g/dl (12.0-16.0); MEAN CORPUSCULAR HGB CONC 33.2 % (33.0-36.5); MEAN CORPUSCULAR VOLUME 87.4 FL (78-98); MEAN PLATELET VOLUME 8.9 FL (7.4-10.4); MONOCYTES # (AUTO) 0.6 X10'3 (0-0.9); MONOCYTES % (AUTO) 8.6 % (2-12); NEUTROPHILS # (AUTO) 3.9 X10'3 (1.8-7.7); NEUTROPHILS % (AUTO) 59.8 % (42-75); PLATELET COUNT 255 X10'3 (140-440); RED BLOOD COUNT 3.24 X10'6 (4.20-5.60); RED CELL DISTRIBUTION WIDTH 14.7 % (11.5-14.5); WHITE BLOOD COUNT 6.5 X10'3 (4.5-11.0)
[2018-02-20 08:20] LABS: ALBUMIN 1.9 G/DL (3.4-5.0); ANION GAP 4 (8-16); BLOOD UREA NITROGEN 32 MG/DL (7-18); BUN/CREATININE RATIO 23.5 (6.6-38.0); CALCIUM 7.4 MG/DL (8.5-10.1); CHLORIDE 107 MMOL/L (99-107); CREATININE 1.36 MG/DL (0.40-0.90); GLUCOSE 108 MG/DL (70-104); SODIUM 139 MMOL/L (135-145); TOTAL CARBON DIOXIDE 27.9 MMOL/L (24-32); eGFR 38 ML/MIN
[2018-02-20 09:28] LABS: C DIFF ANTIGEN POSITIVE (NEGATIVE); C DIFF SPECIMEN=DIARRHEA? ACCEPTABLE; C DIFFICILE TOXINS A&B POSITIVE (Neg)
[2018-02-20 10:00] VITALS: BP 98/57
[2018-02-20] MEDS ORDERED: sulfacetamide 10% ophthalmic oint 3.5gm RIGHTEYE SCH (10:30)
[2018-02-20] MEDS ORDERED: sulfacetamide sodium 10% ophthalmic drops 5ML BOTTLE RIGHTEYE SCH (10:30)
[2018-02-20] MEDS: sulfacetamide sodium 10% ophthalmic drops 5ML BOTTLE RIGHTEYE SCH ×5 (13:11→23:45)
[2018-02-20 15:12] VITALS: BP 110/54
[2018-02-20 18:00] VITALS: BP 98/57
[2018-02-20 22:00] VITALS: BP_SYST 101; BP_SYST 119; BP_DIAS 54; BP_DIAS 65
[2018-02-21] MEDS: vancomycin 125mg/5ml ORAL solution 5ml UD bottle PO SCH ×4 (02:14→20:24)
[2018-02-21] MEDS: sulfacetamide sodium 10% ophthalmic drops 5ML BOTTLE RIGHTEYE SCH ×8 (02:30→23:43)
[2018-02-21 06:00] VITALS: BP 109/59
[2018-02-21 08:00] VITALS: BP 124/56
[2018-02-21] MEDS: enoxaparin 30mg/0.3ml syringe SUBCUT SCH (08:04)
[2018-02-21] MEDS: carbidoba-levodopa 25-100mg tablet PO SCH ×4 (08:04→20:25)
[2018-02-21] MEDS: carbidopa/levodopa 50/200mg CR tablet PO SCH ×3 (08:04→20:25)
[2018-02-21] MEDS: potassium CL 20mEq in D5-1/2NS 1,000 ML IV SCH ×2 (08:05→17:05)
[2018-02-21 10:00] VITALS: BP 124/56
[2018-02-21] MEDS: lactose-reduced food (Ensure High Protein) 237ml bottle PO SCH (17:30)
[2018-02-21 18:00] VITALS: BP 125/64
[2018-02-21 22:00] VITALS: BP 128/82
[2018-02-21] MEDS: HYDROcodone/acetaminophen 5mg/325mg tablet PO PRN (23:43)
[2018-02-22] MEDS: vancomycin 125mg/5ml ORAL solution 5ml UD bottle PO SCH ×4 (02:20→20:14)
[2018-02-22] MEDS: potassium CL 20mEq in D5-1/2NS 1,000 ML IV SCH ×2 (02:21→12:15)
[2018-02-22] MEDS: sulfacetamide sodium 10% ophthalmic drops 5ML BOTTLE RIGHTEYE SCH ×7 (02:25→20:25)
[2018-02-22] MEDS: HYDROcodone/acetaminophen 5mg/325mg tablet PO PRN ×3 (03:43→22:29)
[2018-02-22 06:00] VITALS: BP 144/78
[2018-02-22] MEDS: lactose-reduced food (Ensure High Protein) 237ml bottle PO SCH ×2 (07:30→17:30)
[2018-02-22] MEDS: enoxaparin 30mg/0.3ml syringe SUBCUT SCH (07:40)
[2018-02-22] MEDS: carbidoba-levodopa 25-100mg tablet PO SCH ×4 (07:41→20:25)
[2018-02-22] MEDS: carbidopa/levodopa 50/200mg CR tablet PO SCH ×3 (07:41→20:24)
[2018-02-22] MEDS: ondansetron/PF 4mg/2ml inj IV PRN (09:12)
[2018-02-22 09:58] VITALS: BP 123/81
[2018-02-22 18:00] VITALS: BP 128/54
[2018-02-22 22:00] VITALS: BP 136/72
[2018-02-23] MEDS: vancomycin 125mg/5ml ORAL solution 5ml UD bottle PO SCH ×4 (01:32→20:40)
[2018-02-23] MEDS: sulfacetamide sodium 10% ophthalmic drops 5ML BOTTLE RIGHTEYE SCH ×8 (01:33→20:40)
[2018-02-23] MEDS: HYDROcodone/acetaminophen 5mg/325mg tablet PO PRN ×2 (02:09→05:46)
[2018-02-23 06:00] VITALS: BP 134/70
[2018-02-23] MEDS: carbidoba-levodopa 25-100mg tablet PO SCH ×4 (08:20→20:40)
[2018-02-23] MEDS: enoxaparin 30mg/0.3ml syringe SUBCUT SCH (08:20)
[2018-02-23] MEDS: carbidopa/levodopa 50/200mg CR tablet PO SCH ×3 (08:20→20:40)
[2018-02-23] MEDS: lactobacillus rhamnosus 10,000 MMU CELLS/CAPSULE PO SCH ×2 (08:20→20:40)
[2018-02-23] MEDS: lactose-reduced food (Ensure High Protein) 237ml bottle PO SCH ×2 (08:21→17:30)
[2018-02-23 10:00] VITALS: BP 117/75
[2018-02-23 18:00] VITALS: BP 125/55
[2018-02-23 22:00] VITALS: BP 128/60
[2018-02-24] MEDS: sulfacetamide sodium 10% ophthalmic drops 5ML BOTTLE RIGHTEYE SCH ×9 (00:17→21:00)
[2018-02-24] MEDS: vancomycin 125mg/5ml ORAL solution 5ml UD bottle PO SCH ×4 (02:34→20:36)
[2018-02-24] MEDS: HYDROcodone/acetaminophen 5mg/325mg tablet PO PRN ×3 (02:41→20:45)
[2018-02-24 06:00] VITALS: BP 125/67
[2018-02-24] MEDS: lactose-reduced food (Ensure High Protein) 237ml bottle PO SCH ×2 (07:45→18:28)
[2018-02-24] MEDS: carbidopa/levodopa 50/200mg CR tablet PO SCH ×3 (07:53→20:36)
[2018-02-24] MEDS: lactobacillus rhamnosus 10,000 MMU CELLS/CAPSULE PO SCH ×2 (07:53→20:36)
[2018-02-24] MEDS: carbidoba-levodopa 25-100mg tablet PO SCH ×4 (07:53→20:36)
[2018-02-24] MEDS: enoxaparin 30mg/0.3ml syringe SUBCUT SCH (07:54)
[2018-02-24 10:30] VITALS: BP 132/77
[2018-02-24 17:00] VITALS: BP 125/70
[2018-02-24 22:00] VITALS: BP 131/67
[2018-02-25] MEDS: vancomycin 125mg/5ml ORAL solution 5ml UD bottle PO SCH ×4 (01:20→20:07)
[2018-02-25] MEDS: HYDROcodone/acetaminophen 5mg/325mg tablet PO PRN ×3 (03:27→14:37)
[2018-02-25] MEDS: sulfacetamide sodium 10% ophthalmic drops 5ML BOTTLE RIGHTEYE SCH ×9 (03:29→23:48)
[2018-02-25 05:00] VITALS: BP 122/74
[2018-02-25] MEDS: carbidoba-levodopa 25-100mg tablet PO SCH ×4 (07:33→20:07)
[2018-02-25] MEDS: carbidopa/levodopa 50/200mg CR tablet PO SCH ×3 (07:33→20:07)
[2018-02-25] MEDS: lactobacillus rhamnosus 10,000 MMU CELLS/CAPSULE PO SCH ×2 (07:33→20:07)
[2018-02-25] MEDS: enoxaparin 30mg/0.3ml syringe SUBCUT SCH (07:35)
[2018-02-25] MEDS: lactose-reduced food (Ensure High Protein) 237ml bottle PO SCH ×2 (08:13→17:42)
[2018-02-25 10:35] LABS: ALANINE AMINOTRANSFERASE 6 U/L (12-78); ALBUMIN/GLOBULIN RATIO 0.5 (1.1-1.5); ALKALINE PHOSPHATASE 126 IU/L (46-116); ANION GAP 4 (8-16); ASPARTATE AMINO TRANSFERASE 17 U/L (10-37); BILIRUBIN,TOTAL 0.6 MG/DL (0.1-1.0); BLOOD UREA NITROGEN 17 MG/DL (7-18); BUN/CREATININE RATIO 17.2 (6.6-38.0); CALCIUM 7.9 MG/DL (8.5-10.1); CHLORIDE 104 MMOL/L (99-107); CREATININE 0.99 MG/DL (0.40-0.90); GLUCOSE 92 MG/DL (70-104); POTASSIUM 4.5 MMOL/L (3.5-5.1); SODIUM 138 MMOL/L (135-145); TOTAL CARBON DIOXIDE 30.2 MMOL/L (24-32); TOTAL PROTEIN 6.1 G/DL (6.4-8.2); eGFR 54 ML/MIN
[2018-02-25 11:03] VITALS: BP 116/59
[2018-02-25 11:16] LABS: BASOPHILS % (AUTO) 0.2 % (0-1); EOSINOPHILS # (AUTO) 0.3 X10'3 (0-0.9); EOSINOPHILS % (AUTO) 4.5 % (0-6); HEMATOCRIT 26.1 % (35.0-45.0); HEMOGLOBIN 8.8 g/dl (12.0-16.0); LYMPHOCYTES # (AUTO) 1.4 X10'3 (1.1-4.8); MEAN CORPUSCULAR HEMOGLOBIN 29.3 PG (27.0-31.0); MEAN CORPUSCULAR HGB CONC 33.5 % (33.0-36.5); MEAN CORPUSCULAR VOLUME 87.5 FL (78-98); MEAN PLATELET VOLUME 9.3 FL (7.4-10.4); MONOCYTES # (AUTO) 0.2 X10'3 (0-0.9); NEUTROPHILS # (AUTO) 4.3 X10'3 (1.8-7.7); NEUTROPHILS % (AUTO) 69.3 % (42-75); PLATELET COUNT 117 X10'3 (140-440); RED BLOOD COUNT 2.99 X10'6 (4.20-5.60); RED CELL DISTRIBUTION WIDTH 14.8 % (11.5-14.5); WHITE BLOOD COUNT 6.2 X10'3 (4.5-11.0)
[2018-02-25 18:00] VITALS: BP 117/52
[2018-02-26] MEDS: vancomycin 125mg/5ml ORAL solution 5ml UD bottle PO SCH ×4 (02:15→20:28)
[2018-02-26] MEDS: HYDROcodone/acetaminophen 5mg/325mg tablet PO PRN ×4 (02:16→20:31)
[2018-02-26] MEDS: sulfacetamide sodium 10% ophthalmic drops 5ML BOTTLE RIGHTEYE SCH ×7 (02:16→20:31)
[2018-02-26 06:45] VITALS: BP 141/70
[2018-02-26] MEDS: lactose-reduced food (Ensure High Protein) 237ml bottle PO SCH (07:56)
[2018-02-26] MEDS: enoxaparin 30mg/0.3ml syringe SUBCUT SCH (08:00)
[2018-02-26] MEDS: carbidopa/levodopa 50/200mg CR tablet PO SCH ×3 (08:03→20:31)
[2018-02-26] MEDS: carbidoba-levodopa 25-100mg tablet PO SCH ×4 (08:03→20:30)
[2018-02-26] MEDS: lactobacillus rhamnosus 10,000 MMU CELLS/CAPSULE PO SCH ×2 (08:03→20:31)
[2018-02-26 10:00] VITALS: BP 157/77
[2018-02-26 18:00] VITALS: BP 127/77
[2018-02-26 22:00] VITALS: BP 126/69
[2018-02-27] MEDS: sulfacetamide sodium 10% ophthalmic drops 5ML BOTTLE RIGHTEYE SCH ×8 (00:38→21:15)
[2018-02-27] MEDS: vancomycin 125mg/5ml ORAL solution 5ml UD bottle PO SCH ×3 (02:18→13:12)
[2018-02-27] MEDS: HYDROcodone/acetaminophen 5mg/325mg tablet PO PRN ×3 (04:15→21:59)
[2018-02-27 05:30] LABS: BASOPHILS % (AUTO) 0.5 % (0-1); EOSINOPHILS # (AUTO) 0.6 X10'3 (0-0.9); EOSINOPHILS % (AUTO) 10.3 % (0-6); HEMATOCRIT 26.9 % (35.0-45.0); LYMPHOCYTES # (AUTO) 1.7 X10'3 (1.1-4.8); LYMPHOCYTES % (AUTO) 31.3 % (21-51); MEAN CORPUSCULAR HGB CONC 33.4 % (33.0-36.5); MEAN CORPUSCULAR VOLUME 86.9 FL (78-98); MEAN PLATELET VOLUME 9.8 FL (7.4-10.4); MONOCYTES # (AUTO) 0.3 X10'3 (0-0.9); MONOCYTES % (AUTO) 4.7 % (2-12); NEUTROPHILS # (AUTO) 2.9 X10'3 (1.8-7.7); NEUTROPHILS % (AUTO) 53.2 % (42-75); PLATELET COUNT 115 X10'3 (140-440); RED BLOOD COUNT 3.09 X10'6 (4.20-5.60); RED CELL DISTRIBUTION WIDTH 14.5 % (11.5-14.5); WHITE BLOOD COUNT 5.5 X10'3 (4.5-11.0)
[2018-02-27 05:45] LABS: ANION GAP 4 (8-16); BLOOD UREA NITROGEN 18 MG/DL (7-18); BUN/CREATININE RATIO 16.2 (6.6-38.0); CHLORIDE 104 MMOL/L (99-107); CREATININE 1.11 MG/DL (0.40-0.90); GLUCOSE 81 MG/DL (70-104); POTASSIUM 4.3 MMOL/L (3.5-5.1); SODIUM 140 MMOL/L (135-145); TOTAL CARBON DIOXIDE 32.1 MMOL/L (24-32)
[2018-02-27 05:46] LABS: ALBUMIN 2.1 G/DL (3.4-5.0); CALCIUM 8.1 MG/DL (8.5-10.1); eGFR 47 ML/MIN
[2018-02-27 06:00] VITALS: BP 138/76
[2018-02-27] MEDS: enoxaparin 30mg/0.3ml syringe SUBCUT SCH (07:05)
[2018-02-27] MEDS: lactobacillus rhamnosus 10,000 MMU CELLS/CAPSULE PO SCH ×2 (07:07→21:14)
[2018-02-27] MEDS: carbidopa/levodopa 50/200mg CR tablet PO SCH ×3 (07:07→21:14)
[2018-02-27] MEDS: carbidoba-levodopa 25-100mg tablet PO SCH ×4 (07:07→21:14)
[2018-02-27 10:00] VITALS: BP 118/53
[2018-02-27 16:25] LABS: CLARITY,URINE SLIGHTLY CLOUDY (Clear); COLOR,URINE YELLOW (Yellow); GLUCOSE, URINE NEGATIVE (Neg); KETONES,URINE TRACE mg/dl (Neg); LEUKOCYTE ESTERASE ,URINE LARGE (Neg); NITRITES, URINE NEGATIVE (Neg); OCCULT BLOOD,URINE SMALL (Neg); PH,URINE 8.5 (4.8-8.0); PROTEIN,URINE >=300 mg/dl (Neg); UROBILINOGEN,URINE 0.2 E.U/dL (0.2-1.0)
[2018-02-27 16:35] LABS: BACTERIA,URINE 4+ /HPF (Neg); UA COLLECTION TYPE STRAIGHT CATH; WBC,URINE TNTC /HPF (0-4)
[2018-02-27 16:36] LABS: SQUAMOUS EPITHELIAL CELL,UR MODERATE /LPF (FEW)
[2018-02-27 18:00] VITALS: BP 119/63
[2018-02-27] MEDS: CefTRIAXone/D5W-Rocephin 1gm 50 ML IV SCH (19:37)
[2018-02-27] MEDS: vancomycin 250MG/10ML UD oral solution 10ML BOTTLE PO SCH (19:52)
[2018-02-27 20:00] VITALS: BP_SYST 120; BP_SYST 125; BP_DIAS 65
[2018-02-27 22:00] VITALS: BP 125/65
[2018-02-28] MEDS: sulfacetamide sodium 10% ophthalmic drops 5ML BOTTLE RIGHTEYE SCH ×8 (00:29→21:16)
[2018-02-28] MEDS: vancomycin 250MG/10ML UD oral solution 10ML BOTTLE PO SCH ×4 (03:01→19:57)
[2018-02-28] MEDS: HYDROcodone/acetaminophen 5mg/325mg tablet PO PRN ×4 (03:08→21:31)
[2018-02-28 06:00] VITALS: BP 127/65
[2018-02-28 08:06] LABS: BASOPHILS % (AUTO) 0.5 % (0-1); EOSINOPHILS # (AUTO) 0.4 X10'3 (0-0.9); EOSINOPHILS % (AUTO) 7.2 % (0-6); HEMATOCRIT 26.6 % (35.0-45.0); HEMOGLOBIN 8.8 g/dl (12.0-16.0); LYMPHOCYTES # (AUTO) 1.6 X10'3 (1.1-4.8); LYMPHOCYTES % (AUTO) 30.3 % (21-51); MEAN CORPUSCULAR HEMOGLOBIN 28.6 PG (27.0-31.0); MEAN CORPUSCULAR HGB CONC 32.8 % (33.0-36.5); MEAN CORPUSCULAR VOLUME 86.9 FL (78-98); MEAN PLATELET VOLUME 9.9 FL (7.4-10.4); MONOCYTES # (AUTO) 0.2 X10'3 (0-0.9); MONOCYTES % (AUTO) 4.2 % (2-12); NEUTROPHILS % (AUTO) 57.8 % (42-75); PLATELET COUNT 126 X10'3 (140-440); RED BLOOD COUNT 3.06 X10'6 (4.20-5.60); RED CELL DISTRIBUTION WIDTH 14.4 % (11.5-14.5); WHITE BLOOD COUNT 5.2 X10'3 (4.5-11.0)
[2018-02-28 08:26] LABS: ALBUMIN 2.1 G/DL (3.4-5.0); ANION GAP 1 (8-16); BLOOD UREA NITROGEN 16 MG/DL (7-18); BUN/CREATININE RATIO 15.2 (6.6-38.0); CALCIUM 8.3 MG/DL (8.5-10.1); CHLORIDE 105 MMOL/L (99-107); CREATININE 1.05 MG/DL (0.40-0.90); GLUCOSE 82 MG/DL (70-104); POTASSIUM 4.4 MMOL/L (3.5-5.1); SODIUM 140 MMOL/L (135-145); TOTAL CARBON DIOXIDE 33.6 MMOL/L (24-32); eGFR 51 ML/MIN
[2018-02-28] MEDS: enoxaparin 30mg/0.3ml syringe SUBCUT SCH (09:18)
[2018-02-28] MEDS: carbidopa/levodopa 50/200mg CR tablet PO SCH ×3 (09:19→21:15)
[2018-02-28] MEDS: carbidoba-levodopa 25-100mg tablet PO SCH ×4 (09:19→21:15)
[2018-02-28] MEDS: CefTRIAXone/D5W-Rocephin 1gm 50 ML IV SCH (09:19)
[2018-02-28] MEDS: lactobacillus rhamnosus 10,000 MMU CELLS/CAPSULE PO SCH ×2 (09:19→19:58)
[2018-02-28 10:00] VITALS: BP 110/64
[2018-02-28] MEDS: Protein Smoothie (high protein) 240ml (8oz) cup PO SCH (12:30)
[2018-02-28 17:00] VITALS: BP 110/55
[2018-02-28] MEDS: Protein Shake (high protein) 240ml (8oz) cup PO SCH (17:30)
[2018-02-28 21:00] VITALS: BP 110/60
[2018-03-01] MEDS: sulfacetamide sodium 10% ophthalmic drops 5ML BOTTLE RIGHTEYE SCH ×9 (00:03→23:31)
[2018-03-01] MEDS: vancomycin 250MG/10ML UD oral solution 10ML BOTTLE PO SCH ×4 (02:31→19:43)
[2018-03-01] MEDS: HYDROcodone/acetaminophen 5mg/325mg tablet PO PRN ×4 (02:51→21:44)
[2018-03-01 06:00] VITALS: BP 114/58
[2018-03-01 06:06] LABS: BASOPHILS % (AUTO) 0.5 % (0-1); EOSINOPHILS # (AUTO) 0.4 X10'3 (0-0.9); HEMATOCRIT 26.2 % (35.0-45.0); HEMOGLOBIN 8.7 g/dl (12.0-16.0); LYMPHOCYTES # (AUTO) 1.7 X10'3 (1.1-4.8); LYMPHOCYTES % (AUTO) 34.8 % (21-51); MEAN CORPUSCULAR HGB CONC 33.1 % (33.0-36.5); MEAN CORPUSCULAR VOLUME 87.6 FL (78-98); MEAN PLATELET VOLUME 10.6 FL (7.4-10.4); MONOCYTES # (AUTO) 0.2 X10'3 (0-0.9); MONOCYTES % (AUTO) 4.9 % (2-12); NEUTROPHILS # (AUTO) 2.4 X10'3 (1.8-7.7); NEUTROPHILS % (AUTO) 50.8 % (42-75); PLATELET COUNT 149 X10'3 (140-440); RED BLOOD COUNT 2.99 X10'6 (4.20-5.60); RED CELL DISTRIBUTION WIDTH 14.3 % (11.5-14.5); WHITE BLOOD COUNT 4.8 X10'3 (4.5-11.0)
[2018-03-01 06:26] LABS: ALBUMIN 2.1 G/DL (3.4-5.0); ANION GAP 3 (8-16); BLOOD UREA NITROGEN 16 MG/DL (7-18); BUN/CREATININE RATIO 14.7 (6.6-38.0); CALCIUM 7.9 MG/DL (8.5-10.1); CHLORIDE 104 MMOL/L (99-107); CREATININE 1.09 MG/DL (0.40-0.90); GLUCOSE 82 MG/DL (70-104); POTASSIUM 4.3 MMOL/L (3.5-5.1); SODIUM 140 MMOL/L (135-145); eGFR 48 ML/MIN
[2018-03-01 06:45] VITALS: BP_SYST 100; BP_SYST 114; BP_SYST 120; BP_DIAS 58; BP_DIAS 67; BP_DIAS 75
[2018-03-01 07:27] LABS: LARGE PLATELETS FEW; PLATELET ESTIMATE NORMAL
[2018-03-01] MEDS: Protein Shake (high protein) 240ml (8oz) cup PO SCH ×2 (07:30→17:30)
[2018-03-01] MEDS: CefTRIAXone/D5W-Rocephin 1gm 50 ML IV SCH (08:00)
[2018-03-01] MEDS: ondansetron/PF 4mg/2ml inj IV PRN (08:08)
[2018-03-01] MEDS: lactobacillus rhamnosus 10,000 MMU CELLS/CAPSULE PO SCH ×2 (08:48→19:43)
[2018-03-01] MEDS: carbidoba-levodopa 25-100mg tablet PO SCH ×4 (08:48→20:41)
[2018-03-01] MEDS: enoxaparin 30mg/0.3ml syringe SUBCUT SCH (08:48)
[2018-03-01] MEDS: carbidopa/levodopa 50/200mg CR tablet PO SCH ×3 (08:48→20:41)
[2018-03-01] MEDS: megestrol acetate 400mg/10ml UD oral suspension PO SCH (08:48)
[2018-03-01 10:00] VITALS: BP 119/55
[2018-03-01] MEDS: Protein Smoothie (high protein) 240ml (8oz) cup PO SCH (12:30)
[2018-03-01] MEDS ORDERED: CefTRIAXone/D5W-Rocephin 1gm 50 ML IV ONE (14:50)
[2018-03-01 17:00] VITALS: BP 98/52
[2018-03-01 22:00] VITALS: BP 115/55
[2018-03-02] MEDS: vancomycin 250MG/10ML UD oral solution 10ML BOTTLE PO SCH ×4 (02:22→19:42)
[2018-03-02] MEDS: sulfacetamide sodium 10% ophthalmic drops 5ML BOTTLE RIGHTEYE SCH ×4 (02:23→12:59)
[2018-03-02 06:00] VITALS: BP 128/61
[2018-03-02] MEDS: Protein Shake (high protein) 240ml (8oz) cup PO SCH ×2 (07:30→17:30)
[2018-03-02 08:00] VITALS: BP 128/61
[2018-03-02] MEDS: carbidopa/levodopa 50/200mg CR tablet PO SCH ×3 (08:05→21:31)
[2018-03-02] MEDS: lactobacillus rhamnosus 10,000 MMU CELLS/CAPSULE PO SCH ×2 (08:05→19:42)
[2018-03-02] MEDS: carbidoba-levodopa 25-100mg tablet PO SCH ×4 (08:05→21:31)
[2018-03-02] MEDS: megestrol acetate 400mg/10ml UD oral suspension PO SCH (08:05)
[2018-03-02] MEDS: CefTRIAXone/D5W-Rocephin 1gm 50 ML IV SCH (08:06)
[2018-03-02] MEDS: enoxaparin 30mg/0.3ml syringe SUBCUT SCH (08:06)
[2018-03-02 08:10] LABS: BASOPHILS % (AUTO) 0.6 % (0-1); EOSINOPHILS # (AUTO) 0.5 X10'3 (0-0.9); EOSINOPHILS % (AUTO) 8.6 % (0-6); HEMATOCRIT 26.6 % (35.0-45.0); HEMOGLOBIN 8.8 g/dl (12.0-16.0); LYMPHOCYTES # (AUTO) 2.1 X10'3 (1.1-4.8); LYMPHOCYTES % (AUTO) 37.4 % (21-51); MEAN CORPUSCULAR HEMOGLOBIN 28.8 PG (27.0-31.0); MEAN CORPUSCULAR HGB CONC 32.9 % (33.0-36.5); MEAN CORPUSCULAR VOLUME 87.6 FL (78-98); MEAN PLATELET VOLUME 9.9 FL (7.4-10.4); MONOCYTES # (AUTO) 0.3 X10'3 (0-0.9); MONOCYTES % (AUTO) 4.8 % (2-12); NEUTROPHILS # (AUTO) 2.7 X10'3 (1.8-7.7); NEUTROPHILS % (AUTO) 48.6 % (42-75); PLATELET COUNT 196 X10'3 (140-440); RED BLOOD COUNT 3.04 X10'6 (4.20-5.60); RED CELL DISTRIBUTION WIDTH 14.5 % (11.5-14.5); WHITE BLOOD COUNT 5.5 X10'3 (4.5-11.0)
[2018-03-02 08:23] LABS: ALBUMIN 2.1 G/DL (3.4-5.0); ANION GAP 5 (8-16); BLOOD UREA NITROGEN 21 MG/DL (7-18); BUN/CREATININE RATIO 16.2 (6.6-38.0); CALCIUM 8.5 MG/DL (8.5-10.1); CHLORIDE 104 MMOL/L (99-107); GLUCOSE 85 MG/DL (70-104); POTASSIUM 4.3 MMOL/L (3.5-5.1); SODIUM 142 MMOL/L (135-145); TOTAL CARBON DIOXIDE 33.1 MMOL/L (24-32); eGFR 40 ML/MIN
[2018-03-02 10:00] VITALS: BP 108/64
[2018-03-02] MEDS: Protein Smoothie (high protein) 240ml (8oz) cup PO SCH (12:30)
[2018-03-02 18:00] VITALS: BP 108/54
[2018-03-02 22:00] VITALS: BP 86/58
[2018-03-03] MEDS: vancomycin 250MG/10ML UD oral solution 10ML BOTTLE PO SCH ×4 (02:06→20:37)
[2018-03-03] MEDS: HYDROcodone/acetaminophen 5mg/325mg tablet PO PRN ×3 (02:27→15:37)
[2018-03-03 06:00] VITALS: BP 105/59
[2018-03-03] MEDS: Protein Shake (high protein) 240ml (8oz) cup PO SCH ×2 (07:30→18:01)
[2018-03-03] MEDS: CefTRIAXone/D5W-Rocephin 1gm 50 ML IV SCH (07:57)
[2018-03-03] MEDS: lactobacillus rhamnosus 10,000 MMU CELLS/CAPSULE PO SCH ×2 (07:57→20:37)
[2018-03-03] MEDS: megestrol acetate 400mg/10ml UD oral suspension PO SCH (07:57)
[2018-03-03] MEDS: carbidopa/levodopa 50/200mg CR tablet PO SCH ×3 (07:58→20:37)
[2018-03-03] MEDS: enoxaparin 30mg/0.3ml syringe SUBCUT SCH (07:58)
[2018-03-03] MEDS: carbidoba-levodopa 25-100mg tablet PO SCH ×4 (07:58→20:37)
[2018-03-03 10:00] VITALS: BP 112/61
[2018-03-03] MEDS: Protein Smoothie (high protein) 240ml (8oz) cup PO SCH (12:30)
[2018-03-03] MEDS: aspirin 81mg tablet.DR PO SCH (13:09)
[2018-03-03] MEDS: magnesium hydroxide 30ml (MOM) UD suspension PO PRN (13:09)
[2018-03-03 13:52] LABS: ALBUMIN 2.2 G/DL (3.4-5.0); ANION GAP 3 (8-16); BLOOD UREA NITROGEN 22 MG/DL (7-18); BUN/CREATININE RATIO 17.7 (6.6-38.0); CALCIUM 8.2 MG/DL (8.5-10.1); CHLORIDE 103 MMOL/L (99-107); CREATININE 1.24 MG/DL (0.40-0.90); GLUCOSE 98 MG/DL (70-104); POTASSIUM 4.5 MMOL/L (3.5-5.1); SODIUM 140 MMOL/L (135-145); TOTAL CARBON DIOXIDE 33.8 MMOL/L (24-32); eGFR 42 ML/MIN
[2018-03-03 18:00] VITALS: BP 107/53
[2018-03-03 22:00] VITALS: BP 110/54
[2018-03-04] MEDS: vancomycin 250MG/10ML UD oral solution 10ML BOTTLE PO SCH ×4 (02:51→20:10)
[2018-03-04] MEDS: HYDROcodone/acetaminophen 5mg/325mg tablet PO PRN ×3 (05:32→18:56)
[2018-03-04 06:22] LABS: BASOPHILS % (AUTO) 0.7 % (0-1); EOSINOPHILS # (AUTO) 0.4 X10'3 (0-0.9); EOSINOPHILS % (AUTO) 7.1 % (0-6); HEMATOCRIT 24.3 % (35.0-45.0); HEMOGLOBIN 8.1 g/dl (12.0-16.0); LYMPHOCYTES # (AUTO) 2.1 X10'3 (1.1-4.8); LYMPHOCYTES % (AUTO) 40.3 % (21-51); MEAN CORPUSCULAR HEMOGLOBIN 28.6 PG (27.0-31.0); MEAN CORPUSCULAR HGB CONC 33.1 % (33.0-36.5); MEAN CORPUSCULAR VOLUME 86.5 FL (78-98); MEAN PLATELET VOLUME 9.7 FL (7.4-10.4); MONOCYTES # (AUTO) 0.3 X10'3 (0-0.9); MONOCYTES % (AUTO) 5.7 % (2-12); NEUTROPHILS # (AUTO) 2.4 X10'3 (1.8-7.7); NEUTROPHILS % (AUTO) 46.2 % (42-75); PLATELET COUNT 369 X10'3 (140-440); RED BLOOD COUNT 2.81 X10'6 (4.20-5.60); RED CELL DISTRIBUTION WIDTH 14.7 % (11.5-14.5); WHITE BLOOD COUNT 5.2 X10'3 (4.5-11.0)
[2018-03-04 06:29] LABS: ALBUMIN 2.1 G/DL (3.4-5.0); ALBUMIN/GLOBULIN RATIO 0.5 (1.1-1.5); ALKALINE PHOSPHATASE 131 IU/L (46-116); ANION GAP 4 (8-16); ASPARTATE AMINO TRANSFERASE 21 U/L (10-37); BILIRUBIN,TOTAL 0.5 MG/DL (0.1-1.0); BLOOD UREA NITROGEN 19 MG/DL (7-18); BUN/CREATININE RATIO 17.8 (6.6-38.0); CALCIUM 8.2 MG/DL (8.5-10.1); CHLORIDE 104 MMOL/L (99-107); CREATININE 1.07 MG/DL (0.40-0.90); GLUCOSE 80 MG/DL (70-104); POTASSIUM 4.4 MMOL/L (3.5-5.1); SODIUM 141 MMOL/L (135-145); TOTAL CARBON DIOXIDE 33.5 MMOL/L (24-32); eGFR 49 ML/MIN
[2018-03-04 06:56] LABS: ALANINE AMINOTRANSFERASE < 6 U/L (12-78)
[2018-03-04 07:06] VITALS: BP 114/60
[2018-03-04] MEDS: Protein Shake (high protein) 240ml (8oz) cup PO SCH ×2 (07:36→17:30)
[2018-03-04] MEDS: aspirin 81mg tablet.DR PO SCH (07:45)
[2018-03-04] MEDS: lactobacillus rhamnosus 10,000 MMU CELLS/CAPSULE PO SCH ×2 (07:45→20:10)
[2018-03-04] MEDS: CefTRIAXone/D5W-Rocephin 1gm 50 ML IV SCH (07:45)
[2018-03-04] MEDS: enoxaparin 30mg/0.3ml syringe SUBCUT SCH (07:45)
[2018-03-04] MEDS: megestrol acetate 400mg/10ml UD oral suspension PO SCH (07:45)
[2018-03-04] MEDS: carbidopa/levodopa 50/200mg CR tablet PO SCH ×3 (07:45→20:10)
[2018-03-04] MEDS: carbidoba-levodopa 25-100mg tablet PO SCH ×4 (07:45→20:10)
[2018-03-04] MEDS: Protein Smoothie (high protein) 240ml (8oz) cup PO SCH (12:30)
[2018-03-04 18:00] VITALS: BP 102/53
[2018-03-04] MEDS: magnesium hydroxide 30ml (MOM) UD suspension PO PRN (20:12)
[2018-03-04 22:00] VITALS: BP 135/74
[2018-03-05] MEDS: vancomycin 250MG/10ML UD oral solution 10ML BOTTLE PO SCH ×4 (01:44→19:42)
[2018-03-05 06:41] VITALS: BP 116/65
[2018-03-05 06:51] LABS: BASOPHILS % (AUTO) 0.6 % (0-1); EOSINOPHILS # (AUTO) 0.4 X10'3 (0-0.9); EOSINOPHILS % (AUTO) 7.1 % (0-6); HEMATOCRIT 25.1 % (35.0-45.0); HEMOGLOBIN 8.3 g/dl (12.0-16.0); LYMPHOCYTES # (AUTO) 2.3 X10'3 (1.1-4.8); LYMPHOCYTES % (AUTO) 42.1 % (21-51); MEAN CORPUSCULAR HEMOGLOBIN 28.7 PG (27.0-31.0); MEAN CORPUSCULAR VOLUME 86.9 FL (78-98); MEAN PLATELET VOLUME 9.4 FL (7.4-10.4); MONOCYTES # (AUTO) 0.3 X10'3 (0-0.9); MONOCYTES % (AUTO) 6.3 % (2-12); NEUTROPHILS # (AUTO) 2.4 X10'3 (1.8-7.7); NEUTROPHILS % (AUTO) 43.9 % (42-75); PLATELET COUNT 569 X10'3 (140-440); RED BLOOD COUNT 2.89 X10'6 (4.20-5.60); RED CELL DISTRIBUTION WIDTH 14.5 % (11.5-14.5); WHITE BLOOD COUNT 5.5 X10'3 (4.5-11.0)
[2018-03-05] MEDS: megestrol acetate 400mg/10ml UD oral suspension PO SCH (07:08)
[2018-03-05 07:09] LABS: ALBUMIN 2.5 G/DL (3.4-5.0); ALBUMIN/GLOBULIN RATIO 0.6 (1.1-1.5); ALKALINE PHOSPHATASE 144 IU/L (46-116); ANION GAP 6 (8-16); ASPARTATE AMINO TRANSFERASE 14 U/L (10-37); BILIRUBIN,TOTAL 0.5 MG/DL (0.1-1.0); BLOOD UREA NITROGEN 21 MG/DL (7-18); BUN/CREATININE RATIO 17.9 (6.6-38.0); CALCIUM 8.8 MG/DL (8.5-10.1); CHLORIDE 102 MMOL/L (99-107); CREATININE 1.17 MG/DL (0.40-0.90); GLUCOSE 84 MG/DL (70-104); POTASSIUM 4.7 MMOL/L (3.5-5.1); SODIUM 139 MMOL/L (135-145); TOTAL PROTEIN 6.7 G/DL (6.4-8.2); eGFR 45 ML/MIN
[2018-03-05] MEDS: lactobacillus rhamnosus 10,000 MMU CELLS/CAPSULE PO SCH ×2 (07:09→19:42)
[2018-03-05] MEDS: enoxaparin 30mg/0.3ml syringe SUBCUT SCH (07:09)
[2018-03-05] MEDS: carbidopa/levodopa 50/200mg CR tablet PO SCH ×3 (07:09→21:24)
[2018-03-05] MEDS: aspirin 81mg tablet.DR PO SCH (07:09)
[2018-03-05] MEDS: carbidoba-levodopa 25-100mg tablet PO SCH ×4 (07:09→21:24)
[2018-03-05 07:10] LABS: ALANINE AMINOTRANSFERASE < 6 U/L (12-78)
[2018-03-05 07:29] LABS: GIANT PLATELET FEW; PLATELET ESTIMATE INCREASED
[2018-03-05] MEDS: Protein Shake (high protein) 240ml (8oz) cup PO SCH ×2 (07:59→17:49)
[2018-03-05 10:00] VITALS: BP 116/41
[2018-03-05] MEDS: Protein Smoothie (high protein) 240ml (8oz) cup PO SCH (12:31)
[2018-03-05] MEDS: HYDROcodone/acetaminophen 5mg/325mg tablet PO PRN ×2 (13:56→19:46)
[2018-03-05 18:08] VITALS: BP 111/53
[2018-03-05] MEDS: docusate sod 100mg capsule PO SCH (19:42)
[2018-03-05 22:00] VITALS: BP 102/50
[2018-03-06] MEDS: vancomycin 250MG/10ML UD oral solution 10ML BOTTLE PO SCH ×4 (01:23→19:50)
[2018-03-06] MEDS: HYDROcodone/acetaminophen 5mg/325mg tablet PO PRN ×2 (01:51→13:44)
[2018-03-06 02:04] LABS: OCCULT BLOOD STOOL NEGATIVE (Neg)
[2018-03-06 05:00] VITALS: BP 103/48
[2018-03-06 06:52] LABS: BASOPHILS % (AUTO) 0.6 % (0-1); EOSINOPHILS # (AUTO) 0.4 X10'3 (0-0.9); EOSINOPHILS % (AUTO) 8.1 % (0-6); HEMATOCRIT 24.2 % (35.0-45.0); HEMOGLOBIN 7.8 g/dl (12.0-16.0); LYMPHOCYTES # (AUTO) 2.1 X10'3 (1.1-4.8); MEAN CORPUSCULAR HGB CONC 32.2 % (33.0-36.5); MEAN CORPUSCULAR VOLUME 87.1 FL (78-98); MEAN PLATELET VOLUME 9.4 FL (7.4-10.4); MONOCYTES # (AUTO) 0.4 X10'3 (0-0.9); MONOCYTES % (AUTO) 7.5 % (2-12); NEUTROPHILS # (AUTO) 2.1 X10'3 (1.8-7.7); NEUTROPHILS % (AUTO) 41.8 % (42-75); PLATELET COUNT 621 X10'3 (140-440); RED BLOOD COUNT 2.78 X10'6 (4.20-5.60); RED CELL DISTRIBUTION WIDTH 14.9 % (11.5-14.5)
[2018-03-06 07:07] LABS: ALANINE AMINOTRANSFERASE 7 U/L (12-78); ALBUMIN 2.3 G/DL (3.4-5.0); ALBUMIN/GLOBULIN RATIO 0.6 (1.1-1.5); ALKALINE PHOSPHATASE 128 IU/L (46-116); ANION GAP 4 (8-16); ASPARTATE AMINO TRANSFERASE 12 U/L (10-37); BILIRUBIN,TOTAL 0.6 MG/DL (0.1-1.0); BLOOD UREA NITROGEN 24 MG/DL (7-18); BUN/CREATININE RATIO 19.8 (6.6-38.0); CALCIUM 8.6 MG/DL (8.5-10.1); CHLORIDE 104 MMOL/L (99-107); CREATININE 1.21 MG/DL (0.40-0.90); GLUCOSE 89 MG/DL (70-104); POTASSIUM 4.8 MMOL/L (3.5-5.1); SODIUM 139 MMOL/L (135-145); TOTAL CARBON DIOXIDE 31.2 MMOL/L (24-32); TOTAL PROTEIN 6.2 G/DL (6.4-8.2); eGFR 43 ML/MIN
[2018-03-06] MEDS: docusate sod 100mg capsule PO SCH ×2 (07:15→19:50)
[2018-03-06] MEDS: carbidoba-levodopa 25-100mg tablet PO SCH ×4 (07:17→19:50)
[2018-03-06] MEDS: megestrol acetate 400mg/10ml UD oral suspension PO SCH (07:17)
[2018-03-06] MEDS: lactobacillus rhamnosus 10,000 MMU CELLS/CAPSULE PO SCH ×2 (07:17→19:49)
[2018-03-06] MEDS: carbidopa/levodopa 50/200mg CR tablet PO SCH ×3 (07:17→19:50)
[2018-03-06] MEDS: aspirin 81mg tablet.DR PO SCH (07:17)
[2018-03-06] MEDS: enoxaparin 30mg/0.3ml syringe SUBCUT SCH (07:17)
[2018-03-06 07:33] LABS: PLATELET ESTIMATE INCREASED
[2018-03-06 07:35] LABS: LARGE PLATELETS MANY
[2018-03-06] MEDS: Protein Shake (high protein) 240ml (8oz) cup PO SCH (07:52)
[2018-03-06 10:00] VITALS: BP 100/57
[2018-03-06 18:00] VITALS: BP 106/70
[2018-03-07] MEDS: vancomycin 250MG/10ML UD oral solution 10ML BOTTLE PO SCH ×4 (02:08→19:22)
[2018-03-07 06:00] VITALS: BP 111/54
[2018-03-07 06:26] LABS: % IRON SATURATION 70 % (11-46); IRON 136 UG/DL (49-151); TOTAL IRON BINDING CAPACITY 195 UG/DL (259-388)
[2018-03-07 06:36] LABS: ALANINE AMINOTRANSFERASE 6 U/L (12-78); ALBUMIN 2.4 G/DL (3.4-5.0); ALBUMIN/GLOBULIN RATIO 0.6 (1.1-1.5); ALKALINE PHOSPHATASE 131 IU/L (46-116); ANION GAP 7 (8-16); ASPARTATE AMINO TRANSFERASE 12 U/L (10-37); BILIRUBIN,TOTAL 0.6 MG/DL (0.1-1.0); BLOOD UREA NITROGEN 25 MG/DL (7-18); BUN/CREATININE RATIO 18.7 (6.6-38.0); CALCIUM 8.2 MG/DL (8.5-10.1); CHLORIDE 103 MMOL/L (99-107); CREATININE 1.34 MG/DL (0.40-0.90); FERRITIN 469 NG/ML (8-252); GLUCOSE 86 MG/DL (70-104); POTASSIUM 4.8 MMOL/L (3.5-5.1); SODIUM 139 MMOL/L (135-145); TOTAL PROTEIN 6.4 G/DL (6.4-8.2); eGFR 38 ML/MIN
[2018-03-07 08:25] LABS: HEMATOCRIT 24.1 % (35.0-45.0); HEMOGLOBIN 8.2 g/dl (12.0-16.0); MEAN CORPUSCULAR HEMOGLOBIN 29.5 PG (27.0-31.0); MEAN CORPUSCULAR HGB CONC 34.1 % (33.0-36.5); MEAN CORPUSCULAR VOLUME 86.7 FL (78-98); RED BLOOD COUNT 2.78 X10'6 (4.20-5.60); WHITE BLOOD COUNT 5.6 X10'3 (4.5-11.0)
[2018-03-07 08:26] LABS: BASOPHILS % (AUTO) 0.7 % (0-1); EOSINOPHILS # (AUTO) 0.3 X10'3 (0-0.9); EOSINOPHILS % (AUTO) 5.5 % (0-6); LYMPHOCYTES # (AUTO) 2.4 X10'3 (1.1-4.8); LYMPHOCYTES % (AUTO) 42.1 % (21-51); MEAN PLATELET VOLUME 10.2 FL (7.4-10.4); MONOCYTES # (AUTO) 0.4 X10'3 (0-0.9); NEUTROPHILS # (AUTO) 2.5 X10'3 (1.8-7.7); NEUTROPHILS % (AUTO) 44.7 % (42-75); PLATELET COUNT 629 X10'3 (140-440); RED CELL DISTRIBUTION WIDTH 13.9 % (11.5-14.5)
[2018-03-07] MEDS ORDERED: normal saline 1000ml 1,000 ML IV SCH (08:50)
[2018-03-07] MEDS: lactobacillus rhamnosus 10,000 MMU CELLS/CAPSULE PO SCH ×2 (08:51→19:22)
[2018-03-07] MEDS: carbidopa/levodopa 50/200mg CR tablet PO SCH ×3 (08:52→20:45)
[2018-03-07] MEDS: carbidoba-levodopa 25-100mg tablet PO SCH ×4 (08:52→20:45)
[2018-03-07] MEDS: aspirin 81mg tablet.DR PO SCH (08:52)
[2018-03-07] MEDS: docusate sod 100mg capsule PO SCH ×2 (08:52→19:21)
[2018-03-07] MEDS: megestrol acetate 400mg/10ml UD oral suspension PO SCH (08:52)
[2018-03-07] MEDS: enoxaparin 30mg/0.3ml syringe SUBCUT SCH (08:52)
[2018-03-07 10:00] VITALS: BP 112/54
[2018-03-07 14:48] LABS: ABSOLUTE RETICS # 4.8 X10'3 uL (32.5-133.0); RETICULOCYTE % (AUTO) 0.2 % (0.5-2.3)
[2018-03-07 17:00] VITALS: BP 105/59
[2018-03-07 21:00] VITALS: BP 90/46
[2018-03-08] MEDS: HYDROcodone/acetaminophen 5mg/325mg tablet PO PRN ×2 (01:05→17:21)
[2018-03-08] MEDS: vancomycin 250MG/10ML UD oral solution 10ML BOTTLE PO SCH ×4 (01:05→20:09)
[2018-03-08 06:56] LABS: BASOPHILS % (AUTO) 0.3 % (0-1); EOSINOPHILS # (AUTO) 0.3 X10'3 (0-0.9); HEMATOCRIT 22.7 % (35.0-45.0); HEMOGLOBIN 7.7 g/dl (12.0-16.0); LYMPHOCYTES # (AUTO) 2.9 X10'3 (1.1-4.8); LYMPHOCYTES % (AUTO) 51.2 % (21-51); MEAN CORPUSCULAR HEMOGLOBIN 29.1 PG (27.0-31.0); MEAN CORPUSCULAR HGB CONC 33.9 % (33.0-36.5); MEAN CORPUSCULAR VOLUME 85.7 FL (78-98); MEAN PLATELET VOLUME 9.6 FL (7.4-10.4); MONOCYTES # (AUTO) 0.5 X10'3 (0-0.9); MONOCYTES % (AUTO) 8.9 % (2-12); NEUTROPHILS # (AUTO) 1.9 X10'3 (1.8-7.7); NEUTROPHILS % (AUTO) 34.6 % (42-75); PLATELET COUNT 762 X10'3 (140-440); RED BLOOD COUNT 2.65 X10'6 (4.20-5.60); RED CELL DISTRIBUTION WIDTH 14.1 % (11.5-14.5); WHITE BLOOD COUNT 5.6 X10'3 (4.5-11.0)
[2018-03-08 07:00] VITALS: BP 109/61
[2018-03-08 07:19] LABS: ALANINE AMINOTRANSFERASE 6 U/L (12-78); ALBUMIN 2.4 G/DL (3.4-5.0); ALBUMIN/GLOBULIN RATIO 0.6 (1.1-1.5); ALKALINE PHOSPHATASE 131 IU/L (46-116); ANION GAP 6 (8-16); ASPARTATE AMINO TRANSFERASE 12 U/L (10-37); BILIRUBIN,TOTAL 0.5 MG/DL (0.1-1.0); BLOOD UREA NITROGEN 24 MG/DL (7-18); BUN/CREATININE RATIO 17.4 (6.6-38.0); CALCIUM 8.1 MG/DL (8.5-10.1); CHLORIDE 105 MMOL/L (99-107); CREATININE 1.38 MG/DL (0.40-0.90); GLUCOSE 91 MG/DL (70-104); POTASSIUM 4.6 MMOL/L (3.5-5.1); SODIUM 139 MMOL/L (135-145); TOTAL CARBON DIOXIDE 27.8 MMOL/L (24-32); TOTAL PROTEIN 6.3 G/DL (6.4-8.2); eGFR 37 ML/MIN
[2018-03-08 07:28] LABS: ANISOCYTOSIS 1+; LARGE PLATELETS FEW; MICROCYTOSIS 1+; PLATELET ESTIMATE INCREASED; POIKILOCYTOSIS FEW; POLYCHROMASIA FEW
[2018-03-08] MEDS: megestrol acetate 400mg/10ml UD oral suspension PO SCH (07:59)
[2018-03-08] MEDS: carbidopa/levodopa 50/200mg CR tablet PO SCH ×3 (07:59→20:09)
[2018-03-08] MEDS: docusate sod 100mg capsule PO SCH ×2 (07:59→20:00)
[2018-03-08] MEDS: aspirin 81mg tablet.DR PO SCH (07:59)
[2018-03-08] MEDS: carbidoba-levodopa 25-100mg tablet PO SCH ×4 (07:59→20:09)
[2018-03-08] MEDS: lactobacillus rhamnosus 10,000 MMU CELLS/CAPSULE PO SCH ×2 (07:59→20:09)
[2018-03-08] MEDS: enoxaparin 30mg/0.3ml syringe SUBCUT SCH (08:00)
[2018-03-08 08:36] LABS: TRANSFERRIN 161 mg/dL (200-370)
[2018-03-08 11:00] VITALS: BP 107/61
[2018-03-08 15:20] LABS: HEMATOCRIT 22.7 % (35.0-45.0); HEMOGLOBIN 7.7 g/dl (12.0-16.0); MEAN CORPUSCULAR HGB CONC 33.7 % (33.0-36.5); MEAN PLATELET VOLUME 9.4 FL (7.4-10.4); PLATELET COUNT 727 X10'3 (140-440); RED BLOOD COUNT 2.64 X10'6 (4.20-5.60); RED CELL DISTRIBUTION WIDTH 13.7 % (11.5-14.5)
[2018-03-08 18:00] VITALS: BP 97/47
[2018-03-08 22:00] VITALS: BP 105/40
[2018-03-09] MEDS: vancomycin 250MG/10ML UD oral solution 10ML BOTTLE PO SCH ×4 (02:09→20:02)
[2018-03-09 06:47] VITALS: BP 99/62
[2018-03-09] MEDS: aspirin 81mg tablet.DR PO SCH (07:38)
[2018-03-09] MEDS: megestrol acetate 400mg/10ml UD oral suspension PO SCH (07:38)
[2018-03-09] MEDS: lactobacillus rhamnosus 10,000 MMU CELLS/CAPSULE PO SCH ×2 (07:38→20:02)
[2018-03-09] MEDS: carbidoba-levodopa 25-100mg tablet PO SCH ×4 (07:38→20:02)
[2018-03-09] MEDS: carbidopa/levodopa 50/200mg CR tablet PO SCH ×3 (07:38→20:02)
[2018-03-09] MEDS: docusate sod 100mg capsule PO SCH ×2 (07:38→20:00)
[2018-03-09] MEDS: enoxaparin 30mg/0.3ml syringe SUBCUT SCH (07:39)
[2018-03-09 07:50] LABS: BASOPHILS % (AUTO) 0.4 % (0-1); EOSINOPHILS # (AUTO) 0.3 X10'3 (0-0.9); HEMATOCRIT 23.8 % (35.0-45.0); HEMOGLOBIN 8.1 g/dl (12.0-16.0); LYMPHOCYTES # (AUTO) 2.6 X10'3 (1.1-4.8); LYMPHOCYTES % (AUTO) 50.9 % (21-51); MEAN CORPUSCULAR HEMOGLOBIN 29.2 PG (27.0-31.0); MEAN CORPUSCULAR HGB CONC 34.1 % (33.0-36.5); MEAN CORPUSCULAR VOLUME 85.8 FL (78-98); MEAN PLATELET VOLUME 10.1 FL (7.4-10.4); MONOCYTES # (AUTO) 0.5 X10'3 (0-0.9); MONOCYTES % (AUTO) 10.8 % (2-12); NEUTROPHILS # (AUTO) 1.7 X10'3 (1.8-7.7); NEUTROPHILS % (AUTO) 32.9 % (42-75); PLATELET COUNT 768 X10'3 (140-440); RED BLOOD COUNT 2.78 X10'6 (4.20-5.60); RED CELL DISTRIBUTION WIDTH 13.9 % (11.5-14.5); WHITE BLOOD COUNT 5.1 X10'3 (4.5-11.0)
[2018-03-09 08:13] LABS: ALANINE AMINOTRANSFERASE < 6 U/L (12-78); ALBUMIN 2.6 G/DL (3.4-5.0); ALBUMIN/GLOBULIN RATIO 0.7 (1.1-1.5); ALKALINE PHOSPHATASE 136 IU/L (46-116); ANION GAP 5 (8-16); ASPARTATE AMINO TRANSFERASE 15 U/L (10-37); BILIRUBIN,TOTAL 0.6 MG/DL (0.1-1.0); BLOOD UREA NITROGEN 27 MG/DL (7-18); BUN/CREATININE RATIO 18.2 (6.6-38.0); CALCIUM 8.7 MG/DL (8.5-10.1); CHLORIDE 105 MMOL/L (99-107); CREATININE 1.48 MG/DL (0.40-0.90); GLUCOSE 82 MG/DL (70-104); POTASSIUM 4.5 MMOL/L (3.5-5.1); SODIUM 139 MMOL/L (135-145); TOTAL CARBON DIOXIDE 28.9 MMOL/L (24-32); TOTAL PROTEIN 6.5 G/DL (6.4-8.2); eGFR 34 ML/MIN
[2018-03-09 10:30] VITALS: BP 92/44
[2018-03-09 17:00] VITALS: BP 103/41
[2018-03-09] MEDS: Protein Shake (high protein) 240ml (8oz) cup PO SCH (18:00)
[2018-03-09] MEDS: normal saline 1000ml 1,000 ML IV SCH (20:02)
[2018-03-09 22:00] VITALS: BP 107/46
[2018-03-09] MEDS: HYDROcodone/acetaminophen 5mg/325mg tablet PO PRN (23:46)
[2018-03-10] MEDS: vancomycin 250MG/10ML UD oral solution 10ML BOTTLE PO SCH ×2 (01:44→08:24)
[2018-03-10] MEDS: HYDROcodone/acetaminophen 5mg/325mg tablet PO PRN ×2 (03:44→10:22)
[2018-03-10 06:00] VITALS: BP 107/57
[2018-03-10 08:03] LABS: ALANINE AMINOTRANSFERASE 8 U/L (12-78); ALBUMIN 2.5 G/DL (3.4-5.0); ALBUMIN/GLOBULIN RATIO 0.6 (1.1-1.5); ALKALINE PHOSPHATASE 145 IU/L (46-116); ANION GAP 7 (8-16); ASPARTATE AMINO TRANSFERASE 16 U/L (10-37); BILIRUBIN,TOTAL 0.5 MG/DL (0.1-1.0); BLOOD UREA NITROGEN 25 MG/DL (7-18); BUN/CREATININE RATIO 19.5 (6.6-38.0); CALCIUM 7.8 MG/DL (8.5-10.1); CHLORIDE 104 MMOL/L (99-107); CREATININE 1.28 MG/DL (0.40-0.90); GLUCOSE 82 MG/DL (70-104); POTASSIUM 4.4 MMOL/L (3.5-5.1); SODIUM 138 MMOL/L (135-145); TOTAL PROTEIN 6.4 G/DL (6.4-8.2); eGFR 40 ML/MIN
[2018-03-10 08:05] LABS: BASOPHILS % (AUTO) 0.4 % (0-1); EOSINOPHILS # (AUTO) 0.2 X10'3 (0-0.9); EOSINOPHILS % (AUTO) 4.8 % (0-6); HEMATOCRIT 22.9 % (35.0-45.0); HEMOGLOBIN 7.9 g/dl (12.0-16.0); LYMPHOCYTES # (AUTO) 2.3 X10'3 (1.1-4.8); LYMPHOCYTES % (AUTO) 51.9 % (21-51); MEAN CORPUSCULAR HEMOGLOBIN 29.5 PG (27.0-31.0); MEAN CORPUSCULAR HGB CONC 34.4 % (33.0-36.5); MEAN CORPUSCULAR VOLUME 85.7 FL (78-98); MEAN PLATELET VOLUME 10.4 FL (7.4-10.4); MONOCYTES # (AUTO) 0.6 X10'3 (0-0.9); MONOCYTES % (AUTO) 12.8 % (2-12); NEUTROPHILS # (AUTO) 1.4 X10'3 (1.8-7.7); NEUTROPHILS % (AUTO) 30.1 % (42-75); PLATELET COUNT 719 X10'3 (140-440); RED BLOOD COUNT 2.67 X10'6 (4.20-5.60); RED CELL DISTRIBUTION WIDTH 13.9 % (11.5-14.5); WHITE BLOOD COUNT 4.5 X10'3 (4.5-11.0)
[2018-03-10] MEDS: carbidopa/levodopa 50/200mg CR tablet PO SCH ×3 (08:24→21:22)
[2018-03-10] MEDS: lactobacillus rhamnosus 10,000 MMU CELLS/CAPSULE PO SCH ×2 (08:24→21:22)
[2018-03-10] MEDS: Protein Shake (high protein) 240ml (8oz) cup PO SCH ×3 (08:24→18:00)
[2018-03-10] MEDS: megestrol acetate 400mg/10ml UD oral suspension PO SCH (08:24)
[2018-03-10] MEDS: aspirin 81mg tablet.DR PO SCH (08:24)
[2018-03-10] MEDS: docusate sod 100mg capsule PO SCH ×2 (08:24→20:00)
[2018-03-10] MEDS: carbidoba-levodopa 25-100mg tablet PO SCH ×4 (08:24→21:22)
[2018-03-10] MEDS: enoxaparin 30mg/0.3ml syringe SUBCUT SCH (08:25)
[2018-03-10 10:00] VITALS: BP 109/56
[2018-03-10] MEDS: normal saline 1000ml 1,000 ML IV SCH (13:12)
[2018-03-10 18:00] VITALS: BP 98/54
[2018-03-10 22:00] VITALS: BP_SYST 87; BP_SYST 96; BP_DIAS 52; BP_DIAS 54
[2018-03-11 05:00] VITALS: BP 101/53
[2018-03-11 05:33] LABS: ALANINE AMINOTRANSFERASE 6 U/L (12-78); ALBUMIN 2.3 G/DL (3.4-5.0); ALBUMIN/GLOBULIN RATIO 0.6 (1.1-1.5); ALKALINE PHOSPHATASE 140 IU/L (46-116); ANION GAP 7 (8-16); ASPARTATE AMINO TRANSFERASE 13 U/L (10-37); BILIRUBIN,TOTAL 0.4 MG/DL (0.1-1.0); BLOOD UREA NITROGEN 27 MG/DL (7-18); BUN/CREATININE RATIO 21.4 (6.6-38.0); CALCIUM 7.7 MG/DL (8.5-10.1); CHLORIDE 108 MMOL/L (99-107); CREATININE 1.26 MG/DL (0.40-0.90); GLUCOSE 91 MG/DL (70-104); POTASSIUM 4.5 MMOL/L (3.5-5.1); SODIUM 141 MMOL/L (135-145); TOTAL CARBON DIOXIDE 26.3 MMOL/L (24-32); eGFR 41 ML/MIN
[2018-03-11 05:39] LABS: BASOPHILS % (AUTO) 0.4 % (0-1); EOSINOPHILS # (AUTO) 0.2 X10'3 (0-0.9); EOSINOPHILS % (AUTO) 4.9 % (0-6); LYMPHOCYTES # (AUTO) 2.3 X10'3 (1.1-4.8); MEAN CORPUSCULAR HEMOGLOBIN 29.5 PG (27.0-31.0); MEAN CORPUSCULAR HGB CONC 34.4 % (33.0-36.5); MEAN CORPUSCULAR VOLUME 85.8 FL (78-98); MEAN PLATELET VOLUME 10.1 FL (7.4-10.4); MONOCYTES # (AUTO) 0.7 X10'3 (0-0.9); MONOCYTES % (AUTO) 15.3 % (2-12); NEUTROPHILS # (AUTO) 1.3 X10'3 (1.8-7.7); NEUTROPHILS % (AUTO) 28.4 % (42-75); PLATELET COUNT 599 X10'3 (140-440); RED BLOOD COUNT 2.38 X10'6 (4.20-5.60); RED CELL DISTRIBUTION WIDTH 13.7 % (11.5-14.5); WHITE BLOOD COUNT 4.5 X10'3 (4.5-11.0)
[2018-03-11 06:15] LABS: HEMATOCRIT 20.5 % (35.0-45.0)
[2018-03-11 07:40] LABS: GIANT PLATELET FEW; LARGE PLATELETS FEW; PLATELET ESTIMATE INCREASED
[2018-03-11] MEDS: docusate sod 100mg capsule PO SCH ×2 (07:47→19:43)
[2018-03-11] MEDS: carbidoba-levodopa 25-100mg tablet PO SCH ×4 (07:47→19:43)
[2018-03-11] MEDS: megestrol acetate 400mg/10ml UD oral suspension PO SCH (07:47)
[2018-03-11] MEDS: lactobacillus rhamnosus 10,000 MMU CELLS/CAPSULE PO SCH ×2 (07:47→19:43)
[2018-03-11] MEDS: enoxaparin 30mg/0.3ml syringe SUBCUT SCH (07:48)
[2018-03-11] MEDS: aspirin 81mg tablet.DR PO SCH (07:48)
[2018-03-11] MEDS: carbidopa/levodopa 50/200mg CR tablet PO SCH ×3 (08:00→19:43)
[2018-03-11 08:15] LABS: BASOPHILS % (AUTO) 0.2 % (0-1); EOSINOPHILS # (AUTO) 0.2 X10'3 (0-0.9); HEMATOCRIT 22.8 % (35.0-45.0); HEMOGLOBIN 7.8 g/dl (12.0-16.0); LYMPHOCYTES # (AUTO) 2.3 X10'3 (1.1-4.8); LYMPHOCYTES % (AUTO) 50.2 % (21-51); MEAN CORPUSCULAR HEMOGLOBIN 29.4 PG (27.0-31.0); MEAN CORPUSCULAR HGB CONC 34.1 % (33.0-36.5); MEAN CORPUSCULAR VOLUME 86.2 FL (78-98); MEAN PLATELET VOLUME 9.6 FL (7.4-10.4); MONOCYTES # (AUTO) 0.7 X10'3 (0-0.9); MONOCYTES % (AUTO) 15.1 % (2-12); NEUTROPHILS # (AUTO) 1.4 X10'3 (1.8-7.7); NEUTROPHILS % (AUTO) 29.5 % (42-75); PLATELET COUNT 614 X10'3 (140-440); RED BLOOD COUNT 2.65 X10'6 (4.20-5.60); RED CELL DISTRIBUTION WIDTH 13.8 % (11.5-14.5); WHITE BLOOD COUNT 4.6 X10'3 (4.5-11.0)
[2018-03-11] MEDS: Protein Shake (high protein) 240ml (8oz) cup PO SCH ×3 (08:18→17:56)
[2018-03-11] MEDS: HYDROcodone/acetaminophen 5mg/325mg tablet PO PRN ×2 (09:00→14:22)
[2018-03-11 10:00] VITALS: BP 101/48
[2018-03-11 22:00] VITALS: BP 102/44
[2018-03-12] VITALS (7 sets, daily range): BP systolic 94–111; BP diastolic 48–62
[2018-03-12] MEDS: HYDROcodone/acetaminophen 5mg/325mg tablet PO PRN ×2 (03:45→14:19)
[2018-03-12 06:00] LABS: BASOPHILS % (AUTO) 0.4 % (0-1); EOSINOPHILS # (AUTO) 0.4 X10'3 (0-0.9); LYMPHOCYTES # (AUTO) 2.5 X10'3 (1.1-4.8); MEAN CORPUSCULAR HEMOGLOBIN 29.4 PG (27.0-31.0); MEAN CORPUSCULAR HGB CONC 34.1 % (33.0-36.5); MEAN CORPUSCULAR VOLUME 86.1 FL (78-98); MONOCYTES # (AUTO) 0.8 X10'3 (0-0.9); MONOCYTES % (AUTO) 16.8 % (2-12); NEUTROPHILS # (AUTO) 1.3 X10'3 (1.8-7.7); NEUTROPHILS % (AUTO) 25.8 % (42-75); PLATELET COUNT 536 X10'3 (140-440); RED BLOOD COUNT 2.31 X10'6 (4.20-5.60); RED CELL DISTRIBUTION WIDTH 13.8 % (11.5-14.5)
[2018-03-12 06:07] LABS: HEMOGLOBIN 6.8 g/dl (12.0-16.0)
[2018-03-12 06:08] LABS: HEMATOCRIT 19.9 % (35.0-45.0)
[2018-03-12 06:12] LABS: ALBUMIN 2.3 G/DL (3.4-5.0); ANION GAP 6 (8-16); BLOOD UREA NITROGEN 27 MG/DL (7-18); BUN/CREATININE RATIO 18.6 (6.6-38.0); CALCIUM 7.9 MG/DL (8.5-10.1); CHLORIDE 107 MMOL/L (99-107); CREATININE 1.45 MG/DL (0.40-0.90); GLUCOSE 90 MG/DL (70-104); POTASSIUM 4.5 MMOL/L (3.5-5.1); SODIUM 140 MMOL/L (135-145); TOTAL CARBON DIOXIDE 26.7 MMOL/L (24-32); eGFR 35 ML/MIN
[2018-03-12] MEDS: docusate sod 100mg capsule PO SCH ×2 (07:37→20:43)
[2018-03-12] MEDS: lactobacillus rhamnosus 10,000 MMU CELLS/CAPSULE PO SCH ×2 (07:37→20:43)
[2018-03-12] MEDS: aspirin 81mg tablet.DR PO SCH (07:37)
[2018-03-12] MEDS: carbidopa/levodopa 50/200mg CR tablet PO SCH ×3 (07:37→20:43)
[2018-03-12] MEDS: carbidoba-levodopa 25-100mg tablet PO SCH ×4 (07:37→20:43)
[2018-03-12] MEDS: enoxaparin 30mg/0.3ml syringe SUBCUT SCH (07:37)
[2018-03-12] MEDS: megestrol acetate 400mg/10ml UD oral suspension PO SCH (07:39)
[2018-03-12] MEDS: Protein Shake (high protein) 240ml (8oz) cup PO SCH ×3 (08:00→18:59)
[2018-03-12 09:36] LABS: BASOPHILS % (AUTO) 0.5 % (0-1); EOSINOPHILS # (AUTO) 0.3 X10'3 (0-0.9); EOSINOPHILS % (AUTO) 6.4 % (0-6); LYMPHOCYTES # (AUTO) 2.4 X10'3 (1.1-4.8); LYMPHOCYTES % (AUTO) 48.7 % (21-51); MEAN CORPUSCULAR HEMOGLOBIN 29.1 PG (27.0-31.0); MEAN CORPUSCULAR HGB CONC 33.9 % (33.0-36.5); MEAN CORPUSCULAR VOLUME 85.7 FL (78-98); MEAN PLATELET VOLUME 10.3 FL (7.4-10.4); MONOCYTES # (AUTO) 0.8 X10'3 (0-0.9); MONOCYTES % (AUTO) 16.3 % (2-12); NEUTROPHILS # (AUTO) 1.4 X10'3 (1.8-7.7); NEUTROPHILS % (AUTO) 28.1 % (42-75); PLATELET COUNT 562 X10'3 (140-440); RED BLOOD COUNT 2.33 X10'6 (4.20-5.60); WHITE BLOOD COUNT 4.9 X10'3 (4.5-11.0)
[2018-03-12 09:42] LABS: HEMATOCRIT 19.9 % (35.0-45.0); HEMOGLOBIN 6.8 g/dl (12.0-16.0)
[2018-03-12] MEDS ORDERED: diphenhydrAMINE 25mg capsule PO ONE (11:35)
[2018-03-12] MEDS ORDERED: acetaminophen 325mg tablet PO ONE (11:35)
[2018-03-12] MEDS ORDERED: furosemide 40mg/4ml inj IV ONE (13:35)
[2018-03-12 20:36] LABS: BASOPHILS % (AUTO) 0.6 % (0-1); EOSINOPHILS # (AUTO) 0.3 X10'3 (0-0.9); EOSINOPHILS % (AUTO) 5.8 % (0-6); HEMATOCRIT 23.4 % (35.0-45.0); HEMOGLOBIN 7.9 g/dl (12.0-16.0); LYMPHOCYTES # (AUTO) 2.2 X10'3 (1.1-4.8); LYMPHOCYTES % (AUTO) 45.4 % (21-51); MEAN CORPUSCULAR HEMOGLOBIN 28.8 PG (27.0-31.0); MEAN CORPUSCULAR VOLUME 84.6 FL (78-98); MEAN PLATELET VOLUME 10.4 FL (7.4-10.4); MONOCYTES # (AUTO) 0.8 X10'3 (0-0.9); MONOCYTES % (AUTO) 16.7 % (2-12); NEUTROPHILS # (AUTO) 1.5 X10'3 (1.8-7.7); NEUTROPHILS % (AUTO) 31.5 % (42-75); PLATELET COUNT 502 X10'3 (140-440); RED BLOOD COUNT 2.76 X10'6 (4.20-5.60); RED CELL DISTRIBUTION WIDTH 14.2 % (11.5-14.5); WHITE BLOOD COUNT 4.8 X10'3 (4.5-11.0)
[2018-03-13] MEDS: HYDROcodone/acetaminophen 5mg/325mg tablet PO PRN (02:32)
[2018-03-13] MEDS ORDERED: epiNEPHrine 0.1mg/ml 10ml syringe ONE (06:00)
[2018-03-13] MEDS ORDERED: niCARDipine in sodium Chloride, iso-osm 20mg/200ml bag IV ONE (06:00)
[2018-03-13] MEDS ORDERED: sodium bicarbonate (8.4%) 1 mEq/ml syringe ONE (06:00)
[2018-03-13 06:02] LABS: EOSINOPHILS # (AUTO) 0.4 X10'3 (0-0.9); HEMOGLOBIN 8.6 g/dl (12.0-16.0); LYMPHOCYTES # (AUTO) 2.8 X10'3 (1.1-4.8)
[2018-03-13 06:16] LABS: ALBUMIN 2.4 G/DL (3.4-5.0); ANION GAP 8 (8-16); BASOPHILS % (AUTO) 0.5 % (0-1); BLOOD UREA NITROGEN 30 MG/DL (7-18); CALCIUM 7.9 MG/DL (8.5-10.1); CHLORIDE 105 MMOL/L (99-107); GLUCOSE 91 MG/DL (70-104); LYMPHOCYTES % (AUTO) 47.1 % (21-51); MEAN CORPUSCULAR HGB CONC 34.3 % (33.0-36.5); MEAN CORPUSCULAR VOLUME 84.6 FL (78-98); MEAN PLATELET VOLUME 10.5 FL (7.4-10.4); MONOCYTES # (AUTO) 0.9 X10'3 (0-0.9); MONOCYTES % (AUTO) 14.4 % (2-12); NEUTROPHILS # (AUTO) 1.9 X10'3 (1.8-7.7); PLATELET COUNT 503 X10'3 (140-440); POTASSIUM 4.5 MMOL/L (3.5-5.1); RED BLOOD COUNT 2.96 X10'6 (4.20-5.60); RED CELL DISTRIBUTION WIDTH 14.2 % (11.5-14.5); SODIUM 139 MMOL/L (135-145); TOTAL CARBON DIOXIDE 25.8 MMOL/L (24-32); eGFR 33 ML/MIN
[2018-03-13] MEDS: carbidopa/levodopa 50/200mg CR tablet PO SCH (06:54)
[2018-03-13] MEDS: carbidoba-levodopa 25-100mg tablet PO SCH (06:54)
[2018-03-13] MEDS ORDERED: normal saline 1000ml 1,000 ML IV SCH (07:30)
[2018-03-13] MEDS ORDERED: digoxin 250mcg/ml 2ml ampule IV ONE (07:30)
[2018-03-13 07:36] LABS: ABG BASE EXCESS -6.6 mmol/L (-2.0-3.0); ABG HCO3 18.6 mmol/L (22.0-26.0); ABG OXYGEN SATURATION 97.6 % (95-98); ABG PCO2 (T) 35.5 mmHg (32.0-45.0); ABG PH (T) 7.336 (7.350-7.450); ABG PO2 (T) 112.2 mmHg (83-108); ALLEN'S TEST Positive; FCOHb 0.3 % (0.5-1.5); FLOW 15 L/min; FMetHb 0.1 % (0.3-1.12); FO2Hb 97.2 % (94-100); TOTAL HEMOGLOBIN 10.2 G/dl (12.0-16.0)
[2018-03-13] MEDS ORDERED: amiodarone 150mg/dext, iso-os 100 ML IV ONE (08:00)
[2018-03-13] MEDS ORDERED: amiodarone/D5 360MG/200ML BAG 200 ML IV SCH (08:00)
[2018-03-13] MEDS: ipratropium/albuterol 3ml nebule NEB SCH ×2 (08:14→08:16)
[2018-03-13] MEDS ORDERED: ipratropium/albuterol 3ml nebule ONE (08:14)
== END 2018-03-13 08:50 | disposition expired | DRG 371 ==
LOC: ER 09:27 → ED HOLD 15:22 → ORTHO 4S 17:45
PROVIDERS: ADMIT Internal Medicine; ATTEND Internal Medicine
PROC: 30233N1 Transfusion of Nonautologous Red Blood Cells into Peripheral Vein, Percutaneous Approach (ICD-10-PCS; principal; 2018-03-12)
PROC: 0BH17EZ Insertion of Endotracheal Airway into Trachea, Via Natural or Artificial Opening (ICD-10-PCS; 2018-03-13)
PROC: 5A12012 Performance of Cardiac Output, Single, Manual (ICD-10-PCS; 2018-03-13)
DX: A04.71 Enterocolitis due to Clostridium difficile, recurrent (principal); L89.153 Pressure ulcer of sacral region, stage 3; E43 Unspecified severe protein-calorie malnutrition; I50.22 Chronic systolic (congestive) heart failure; N30.00 Acute cystitis without hematuria; N17.9 Acute kidney failure, unspecified; E86.0 Dehydration; D63.8 Anemia in other chronic diseases classified elsewhere; Z68.24 Body mass index [BMI] 24.0-24.9, adult; G20 Parkinson's disease; H10.33 Unspecified acute conjunctivitis, bilateral; I46.9 Cardiac arrest, cause unspecified; Z60.2 Problems related to living alone; G89.29 Other chronic pain; M54.9 Dorsalgia, unspecified; R06.03 Acute respiratory distress; E87.6 Hypokalemia; B96.4 Proteus (mirabilis) (morganii) as the cause of diseases classified elsewhere; I48.2 Chronic atrial fibrillation; J43.9 Emphysema, unspecified; K59.00 Constipation, unspecified; N18.9 Chronic kidney disease, unspecified; Z90.49 Acquired absence of other specified parts of digestive tract; Z90.5 Acquired absence of kidney; Z98.51 Tubal ligation status; Z79.82 Long term (current) use of aspirin; Z86.19 Personal history of other infectious and parasitic diseases; Z87.442 Personal history of urinary calculi; Z80.3 Family history of malignant neoplasm of breast
CPT/HCPCS: 36415; 36600; 71045; 80048; 80053; 81001; 82272; 82607; 82728; 82803; 83540; 83550; 83690; 83880; 84466; 85018; 85025; 85027; 85610; 85730; 86885; 86900; 86901; 86920; 87045; 87046; 87070; 87077; 87088; 87186; 87324; 87449; 93005; 93308; 94640; 96361; 96374; 96375; 97110; 97116; 97161; 97530; 99285; A4353; A6209; A6212; A6213; J0171; J0282; J0696; J1160; J1650; J1940; J2405; J2997; J3480; J7030; P9016; Q0163